=== PATIENT | male | born 1950 | race Caucasian/White ===

== ENCOUNTER → 2020-03-12 12:04 | Outpatient (CLI) | payer MEDICARE, OTHER, SELFPAY ==
[2020-03-12 11:32] VITALS: BMI 21.1
[2020-03-12 16:18] LABS: ALB/GLOB Ratio 1.2 RATIO (0.9-2.4); AST(SGOT) 19 U/L (15-37); Alanine Aminotransfer ALT/SGPT 32 U/L (16-61); Albumin, Serum 3.7 g/dL (3.2-5.0); Alkaline Phosphatase 86 U/L (45-117); Anion Gap 5 (5-15); BUN 15 mg/dL (7-18); BUN/Creat Ratio 15.9 RATIO (10-20); Calcium,Total 9.5 mg/dL (8.5-10.1); Chloride 107 mmol/L (98-107); Cholesterol 161 mg/dL (200); Creatinine, Serum 0.94 mg/dL (0.70-1.30); EST Glomerular Filtration Rate 84 mL/min (>60); Est Glom Filt Rate - Afr Amer 102 mL/min (>60); Globulin 3.1 g/dL (2.2-4.2); Glucose 87 mg/dL (74-106); High Density Lipoprotein 54 mg/dL; PSA,Total- Diagnostic 1.21 ng/mL (0.0-4.0); Potassium 4.5 mmol/L (3.5-5.1); Protein, Total 6.8 g/dL (6.4-8.2); Sodium Level 141 mmol/L (136-145); Triglycerides 182 mg/dL; Very Low Density Lipoprotein 36 mg/dL (5-40)
== END ==
PROVIDERS: PCP Family Medicine; Referring Provider Family Medicine; Visit Provider Family Medicine
DX: Z00.00 Encounter for general adult medical examination without abnormal findings (principal); E78.5 Hyperlipidemia, unspecified; R35.1 Nocturia
CPT/HCPCS: 36415; 80053; 80061; 84153

== ENCOUNTER → 2021-01-06 14:43 | Outpatient (CLI) | payer MEDICARE, OTHER, SELFPAY ==
[2021-01-06 17:04] LABS: ALB/GLOB Ratio 1.3 RATIO (0.9-2.4); AST(SGOT) 21 U/L (15-37); Alanine Aminotransfer ALT/SGPT 50 U/L (16-61); Albumin, Serum 3.8 g/dL (3.2-5.0); Alkaline Phosphatase 75 U/L (45-117); Anion Gap 5 (5-15); BUN 15 mg/dL (7-18); BUN/Creat Ratio 17.2 RATIO (10-20); Calcium,Total 9.5 mg/dL (8.5-10.1); Chloride 106 mmol/L (98-107); Cholesterol 168 mg/dL (200); Creatinine, Serum 0.87 mg/dL (0.70-1.30); EST Glomerular Filtration Rate 91 mL/min (>60); Est Glom Filt Rate - Afr Amer 111 mL/min (>60); Globulin 2.9 g/dL (2.2-4.2); Glucose 120 mg/dL (74-106); High Density Lipoprotein 44 mg/dL; PSA,Total- Diagnostic 1.27 ng/mL (0.0-4.0); Protein, Total 6.7 g/dL (6.4-8.2); Sodium Level 140 mmol/L (136-145); Triglycerides 264 mg/dL; Very Low Density Lipoprotein 53 mg/dL (5-40)
== END ==
PROVIDERS: PCP Family Medicine; Referring Provider Family Medicine; Visit Provider Family Medicine
DX: Z00.00 Encounter for general adult medical examination without abnormal findings (principal); E78.5 Hyperlipidemia, unspecified; R35.1 Nocturia
CPT/HCPCS: 36415; 80053; 80061; 84153

== ENCOUNTER 2021-03-26 10:30 | Outpatient (RCR) | payer MEDICARE, OTHER, SELFPAY ==
[2020-10-30 13:02] VITALS: BMI 21.1
--- NOTE | 2020-11-05 12:57 | HP.PTEVAL_ITS ---
Patient's Visit Information BRAN DAY is a 70 year old M referred to Physical Therapy by Dr. Erickson Kimble DO with a diagnosis of LOW BACK PAIN,LEFT LEG PAIN. Date of Evaluation: 11/05/20 Physical Therapist: Luis Alonzo, PT, Cert MDT, OCS - Visit Plan Frequency: 2x /Week Duration: 4 Weeks Plan: PT INTERVENTIONS DLS,MECKEZIE EX'S,POSTURAL STRENGTHENING LE FLEXABILITY ,AND MODALTIES - Subjective This 70 y/o male presents to physical therapy with LBP and left leg pain. Patient initially just had left LBP but cleared up in SEPTEMBER .Then recently 2 weeks lifting luggage in a Van throwing in back, Thus made symptoms worse. Location pa in left LS buttock hams/calf dorsal foot. Patient has parathesia calf and foot. Seen DR eveline villareal. Patient had severe symptoms in [place] ..prednisone. Symptoms are intermittent. Aggravating bending, lifting and standing . Walking is okay. Alleviating factors resting and sitting. Pain affects sleeping. Coughing/sneezing . Bowel/bladder -. Patient as no prior PT. Patient symptoms affects QOL and function. Patient worse in leg.Patient goals decrease leg pain.Patient did have a x-rays -. SOCIAL: . VOCATION: retired - Pain Left Back Pain Intensity (Out of 10): 2 Pain Intensity Range: 10 Left Lower Extremity Pain Intensity (Out of 10): 4 Pain Intensity Range: 10 - Objective POSTURE: mild forward posture. GAIT: reciprocal pattern. NEURO: c/o parathesia/tingling, left Left foot ,reflexes L3-4,L4-5,L-S1 1/3. SYMMRTIES: mild scoliosis ,pelvis. FLEXABLITY: hams mod tight. MMT: quads/hams 4/5,hip flexion 4-/5,ankle 5/5. LUMBAR FLEXION: mod loss, extension min loss, side glides min loss - Special Tests L/S Slump test left side: Positive L/S Slump test right side: Negative L/S Left Straight Leg Raise: Negative L/S Right Straight Leg Raise: Positive Lumbar Standing: Flexion - Mechanical Response: No effect Lumbar Standing: Flexion - Symptoms After Testing: No worse Lumbar Standing: Extension - Symptoms During Testing: Decreases Lumbar Standing: Extension - Symptoms After Testing: No better Lumbar Standing: Right Side Glides - Mechanical Response: No effect Lumbar Standing: Right Side [place] - Symptoms During Testing: No effect Lumbar Standing: Right Side [place] - Symptoms After Testing: No effect Lumbar Standing: Left Side [place] - Mechanical Response: No effect Lumbar Standing: Left Side [place] - Symptoms During Testing: No effect Lumbar Standing: Left Side [place] - Symptoms After Testing: No effect Lumbar Lying: Flexion - Mechanical Response: No effect Lumbar Lying: Flexion - Symptoms During Testing: Increases Lumbar Lying: Flexion - Symptoms After Testing: No worse Comments:: hams Lumbar Lying: Extension - Mechanical Response: No effect Lumbar Lying: Extension - Symptoms During Testing: Decreases Lumbar Lying: Extension - Symptoms After Testing: Better Comments:: ham - Goals Goal 1:: I with hep Goal Time Frame: 4-6 Weeks Goal 2:: Patient to improve posture and body mechanics to improve function Goal Time Frame: 4-6 Weeks Goal 3:: Patient to improve lumbar ROM for function of recovery Goal Time Frame: 4-6 Weeks Goal 4:: Patient to decrease back and leg pain by 50% or > to improve function Goal Time Frame: 4-6 Weeks Goal 5:: Patient to improve lumbar ROM for function of recovery Goal Time Frame: 4-6 Weeks - Rehabilitation Potential Physical Therapy Diagnosis: This patient has left lumbar radiculopathy with pain in left leg with pain with test movements, positioning , and decrease function of recovery of lumbar thus affects function and ADL'S thus benifit from skilled PT Rehabilitation Potential: Good - Anticipated Interventions Patient/Client Instruction: Educate patient on: Condition, Plan of Care For the Purpose of:: To decrease pain, To increase ROM, To improve muscle performance and motor function, To improve ability to perform ADL's, To increase tolerance to activity/condition/position, To improve ability of physical actions for home/community/work/leisure, To improve health of tissue, To decrease soft tissue restriction, To increase flexibility/ROM, To reduce risk of recurrence, To prevent re-injury, To improve ability to perform tasks related to life management Therapeutic Exercise to Include: Strength training, Endurance training, Body mechanics, Postural training, Flexibilty training, Dynamic Lumbar Stabilization, Deya Exercises For the Purpose of:: To decrease pain, To increase ROM, To improve muscle performance and motor function, To improve ability to perform ADL's, To decrease soft tissue restriction, To increase flexibility/ROM, To reduce risk of recurrence, To improve health and function, To improve self management, To improve tolerance to ADL's TENS: Yes IF ES: Yes Cryotherapy (ice pack, ice massage): Yes Thermo therapy (hot pack): Yes Ultrasound (thermal/non thermal): Yes For the Purpose of:: To decrease pain, To increase ROM, To improve nutrient delivery to tissue, To increase oxygenation perfusion, To improve health of tissue, To decrease soft tissue restriction, To increase flexibility/ROM Thank you for the opportunity to evaluate your patient. For Medicare and Medicare HMO plans, please review the plan of care and approve it. It will need to be FAXED BACK to us at [phone] for Medicare purposes. For Medicare only, by signing this I certify the plan of care. Please let me know if there are questions or concerns regarding this plan of care. Physician Signature: Date:
--- NOTE | 2020-12-10 11:10 | HP.PTREVAL ---
Dr. Erickson Kimble, DO, It has been my pleasure to treat BRAN DAY over the last 8 visits for LOW BACK PAIN,LEFT LEG PAIN. Please see the progress note below for an update on the physical therapy plan of care! Subjective: Doing better .. sleeping better. less pain Objective/Function: POSTURE: mild forward posture. PALPATION: unremarkable. SYMMTRIES: align. FLEXABILTY: hams mod/severe tight. MMT: quads/hams 4/5 ,hip flexion 4-/5,ankle 5/5. LUMBAR ROM: flexion mod/severe loss, side glides min loss, extension in ,loss. + ANR LEFT Plan Plan: cont with POC 2XWEEK FOR 4WEEKS. PT INTERVENTIONS DLS, MECKEZIE EX'S, POSTURAL STRENGTHENING, LE FLEXABILITY, AND MODALTIES Balance/Gait/Functional tests - Balance/Special Test Scores Oswestry Low Back Score: 15 Goals Goal 1:: I with hep Goal Time Frame: 4-6 Weeks Goal Progress: Goal Met Goal 2:: Patient to improve posture and body mechanics to improve function Goal Time Frame: 4-6 Weeks Goal Progress: Progressing Goal 3:: Patient to improve lumbar ROM for function of recovery Goal Time Frame: 4-6 Weeks Goal Progress: Progressing Goal 4:: Patient to decrease back and leg pain by 50% or > to improve function Goal Time Frame: 4-6 Weeks Goal Progress: Progressing Goal 5:: Patient to improve lumbar ROM for function of recovery Goal Time Frame: 4-6 Weeks Goal Progress: Progressing Anticipated Interventions Patient/Client Instruction: Educate patient on: Condition, Plan of Care For the Purpose of:: To decrease pain, To increase ROM, To improve muscle performance and motor function, To improve ability to perform ADL's, To increase tolerance to activity/condition/position, To improve ability of physical actions for home/community/work/leisure, To improve health of tissue, To decrease soft tissue restriction, To increase flexibility/ROM, To reduce risk of recurrence, To prevent re-injury, To improve ability to perform tasks related to life management Therapeutic Exercise to Include: Strength training, Endurance training, Body mechanics, Postural training, Flexibilty training, Dynamic Lumbar Stabilization, Deya Exercises For the Purpose of:: To decrease pain, To increase ROM, To improve muscle performance and motor function, To improve ability to perform ADL's, To decrease soft tissue restriction, To increase flexibility/ROM, To reduce risk of recurrence, To improve health and function, To improve self management, To improve tolerance to ADL's TENS: Yes IF ES: Yes Cryotherapy (ice pack, ice massage): Yes Thermo therapy (hot pack): Yes Ultrasound (thermal/non thermal): Yes For the Purpose of:: To decrease pain, To increase ROM, To improve nutrient delivery to tissue, To increase oxygenation perfusion, To improve health of tissue, To decrease soft tissue restriction, To increase flexibility/ROM Please do not hesitate to contact me at [phone] by phone or if you have questions or concerns regarding this new plan of care! Sincerely, Luis Alonzo, PT, Cert MDT, OCS
--- NOTE | 2021-01-14 12:57 | HP.PTREVAL ---
Dr. Erickson Kimble, DO, It has been my pleasure to treat BRAN DAY over the last 18 visits for LOW BACK PAIN,LEFT LEG PAIN. Please see the progress note below for an update on the physical therapy plan of care! Subjective: Doing better Objective/Function: POSTURE: WFL. GAIT: RECIPROCAL PATTERN. NEURO: OCCASIONAL PARASTHESIA LEFT LEG,REFLEXES 1/3 L3-4,L4-5,L5-S 1. MMT: QUADS/HAMS ,4/5,HIP FLEXION 4-/5,ANKLE DF 4-/5 LEFT. LUMBAR ROM: FLEXION MIN LOSS,EXTENSION MIN LOSS,SIDE GLIDES MIN LOSS. PATIENT WILL BENIFIT CFROM SKILLED WITH NEURO DEFICITS LEFT LEG WITH WEAKNESS AND FLEXION ACTIVITIES Plan Plan: cont with POC 2XWEEK FOR 4WEEKS. PT INTERVENTIONS DLS, MECKEZIE EX'S, POSTURAL STRENGTHENING, LE FLEXABILITY, AND MODALTIES Balance/Gait/Functional tests - Balance/Special Test Scores Oswestry Low Back Score: 11 Goals Goal 1:: I with hep to self management bacjk Goal Time Frame: 4-6 Weeks Goal Progress: Goal Met Goal 2:: Patient to improve posture and body mechanics to improve function Goal Time Frame: 4-6 Weeks Goal Progress: Progressing Goal 3:: Patient to improve lumbar ROM for function of recovery Goal Time Frame: 4-6 Weeks Goal Progress: Progressing Goal 4:: Patient to decrease back and leg pain by 50% or > to improve function Goal Time Frame: 4-6 Weeks Goal Progress: Progressing Goal 5:: Patient to improve lumbar ROM for function of recovery Goal Time Frame: 4-6 Weeks Goal Progress: Progressing Anticipated Interventions Patient/Client Instruction: Educate patient on: Condition, Plan of Care For the Purpose of:: To decrease pain, To increase ROM, To improve muscle performance and motor function, To improve ability to perform ADL's, To increase tolerance to activity/condition/position, To improve ability of physical actions for home/community/work/leisure, To improve health of tissue, To decrease soft tissue restriction, To increase flexibility/ROM, To reduce risk of recurrence, To prevent re-injury, To improve ability to perform tasks related to life management Therapeutic Exercise to Include: Strength training, Endurance training, Body mechanics, Postural training, Flexibilty training, Dynamic Lumbar Stabilization, Deya Exercises For the Purpose of:: To decrease pain, To increase ROM, To improve muscle performance and motor function, To improve ability to perform ADL's, To decrease soft tissue restriction, To increase flexibility/ROM, To reduce risk of recurrence, To improve health and function, To improve self management, To improve tolerance to ADL's TENS: Yes IF ES: Yes Cryotherapy (ice pack, ice massage): Yes Thermo therapy (hot pack): Yes Ultrasound (thermal/non thermal): Yes For the Purpose of:: To decrease pain, To increase ROM, To improve nutrient delivery to tissue, To increase oxygenation perfusion, To improve health of tissue, To decrease soft tissue restriction, To increase flexibility/ROM Please do not hesitate to contact me at [phone] by phone or if you have questions or concerns regarding this new plan of care! Sincerely, Luis Alonzo, PT, Cert MDT, OCS
--- NOTE | 2021-03-26 11:17 | HP.PTDCSUM ---
It has been my pleasure to treat BRAN DAY referred by Dr. Erickson Kimble DO, with the diagnosis of LOW BACK PAIN,LEFT LEG PAIN for a total of 29 visit(s). Discharge Date: 03/26/21 Please see the following information for a summary of their discharge status. Subjective: Doing well.. Left Back Pain Intensity (Out of 10): 0 Left Lower Extremity Pain Intensity (Out of 10): 0 % Improvement: 90 Objective/Function: POSTURE: WFL. GAIT: RECIROCAL PATTERN. MMT: 4/5 HIP/KNEES/ANKLE. LUMBAR ROM: MIN LOSS FLEXION/EXTENSION. FLEXABILITY: MIN TIGHT Goal 1:: I with hep to self management bacjk Goal Progress: Goal Met Goal 2:: Patient to improve posture and body mechanics to improve function Goal Progress: Goal Met Goal 3:: Patient to improve lumbar ROM for function of recovery Goal Progress: Goal Met Goal 4:: Patient to decrease back and leg pain by 50% or > to improve function Goal Progress: Goal Met Goal 5:: Patient to improve lumbar ROM for function of recovery Goal Progress: Goal Met Plan: D/C Discharge Comments: HEP If there are questions or concerns regarding this patient's physical therapy, please feel free to call me at [phone]. Thank you for the referral of this patient. Sincerely, Luis Alonzo PT, Cert MDT, OCS Balance/Gait/Functional tests - Balance/Special Test Scores Oswestry Low Back Score: 1
== END 2021-03-26 19:00 | disposition home or self-care (01) ==
LOC: PT 10:30
PROVIDERS: PCP Family Medicine; Referring Provider Family Medicine; Visit Provider Family Medicine
DX: M54.5 Low back pain (principal); M79.605 Pain in left leg
CPT/HCPCS: 97110; 97162

== ENCOUNTER → 2021-04-28 12:18 | Outpatient (CLI) | payer MEDICARE, OTHER, SELFPAY ==
--- NOTE | 2021-04-28 14:26 | NEURO ---
NCS and/or EMG Patient Report Ordering Doctor: Erickson Kimble DATE OF SERVICE: 04/28/21 Yahir presents for electrodiagnostic testing of the left lower limb. Reports intermittent low back and left lower extremity pain. Electrodiagnostic findings: Left peroneal motor nerve demonstrates normal distal latency, amplitude and conduction velocity. Normal left tibial motor response. Prolonged left peroneal F-wave. Prolonged H reflex bilaterally. Mildly prolonged left sural latency. Normal left superficial peroneal and medial plantar response. On needle EMG, all muscles tested in the left lower limb showed no evidence of denervation with normal motor unit action potentials. Electrodiagnostic impression: This is an abnormal study in the left lower limb 1. 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 2. There is no electrodiagnostic evidence for lumbosacral radiculopathy.
== END ==
PROVIDERS: PCP Family Medicine; Referring Provider Family Medicine; Visit Provider Family Medicine
DX: M54.16 Radiculopathy, lumbar region (principal)
CPT/HCPCS: 95886; 95910

== ENCOUNTER → 2022-03-08 | Outpatient (CLI) | payer MEDICARE, OTHER, SELFPAY ==
[2022-03-08 12:31] LABS: Absolute Lymphocyte Count 1.54 X10^3/uL (0.83-4.51); Basophil# 0.07 X10^3/uL; Basophil% 1.3 % (0-1); Eosinophil# 0.36 X10^3/uL; Eosinophils% 6.7 % (0-5); Hematocrit 43.4 % (40-54); Hemoglobin 14.6 g/dL (13.0-16.5); Lymphocyte # 1.54 X10^3/ul (0.83-4.51); Lymphocyte % 28.8 % (19-41); Mean Corp Hgb Conc 33.6 g/dL (32-36); Mean Corpuscular Volume 89.1 fL (80-94); Mean Platelet Vol. 9.8 fl (6.2-12.0); Monocyte# 0.41 X10^3/uL; Monocyte% 7.7 % (0-10); NRBC Flagged by Analyzer 0 % (0-5); Neutrophil # 2.95 X10^3/uL (2.7-7.7); Neutrophil % 55.1 % (47-70); Platelet Count 216 K/mm3 (150-450); RBC Distribution Width CV 12.3 % (11.6-14.6); RBC Distribution Width SD 40.2 fl (35.1-43.9); Red Blood Count 4.87 M/mm3 (4.6-6.2); White Blood Count 5.4 K/mm3 (4.4-11.0)
[2022-03-08 12:33] LABS: ALB/GLOB Ratio 1.2 RATIO (0.9-2.4); AST(SGOT) 16 U/L (15-37); Alanine Aminotransfer ALT/SGPT 29 U/L (16-61); Albumin, Serum 3.7 g/dL (3.2-5.0); Alkaline Phosphatase 71 U/L (45-117); Anion Gap 3 (5-15); BUN 19 mg/dL (7-18); BUN/Creat Ratio 18.8 RATIO (10-20); Calcium,Total 9.8 mg/dL (8.5-10.1); Chloride 107 mmol/L (98-107); Cholesterol 153 mg/dL (200); Creatinine, Serum 1.01 mg/dL (0.70-1.30); EST Glomerular Filtration Rate 77 mL/min (>60); Est Glom Filt Rate - Afr Amer 93 mL/min (>60); Glucose 99 mg/dL (74-106); High Density Lipoprotein 52 mg/dL; Potassium 4.3 mmol/L (3.5-5.1); Protein, Total 6.7 g/dL (6.4-8.2); Sodium Level 140 mmol/L (136-145); Triglycerides 147 mg/dL; Very Low Density Lipoprotein 29 mg/dL (5-40)
== END | disposition home or self-care (01) ==
LOC: BIMLAB 10:41
PROVIDERS: PCP Family Medicine; Visit Provider Family Medicine
DX: E78.5 Hyperlipidemia, unspecified (principal); M54.50 Low back pain, unspecified; M79.605 Pain in left leg
CPT/HCPCS: 36415; 80053; 80061; 85025

== ENCOUNTER → 2022-08-31 | Outpatient (CLI) | payer MEDICARE, OTHER, SELFPAY ==
[2022-09-02 05:07] LABS: Immunoglobulin A 83 mg/dL (61-437); Immunoglobulin G 673 mg/dL (603-1613); Immunoglobulin M 30 mg/dL (15-143)
== END | disposition home or self-care (01) ==
LOC: BIMLAB 12:06
PROVIDERS: PCP Family Medicine; Visit Provider Family Medicine
DX: U09.9 Post COVID-19 condition, unspecified (principal)
CPT/HCPCS: 36415; 82784

== ENCOUNTER → 2022-11-02 | Outpatient (CLI) | payer MEDICARE, OTHER, SELFPAY ==
[2022-11-02 15:44] LABS: Absolute Lymphocyte Count 1.38 X10^3/uL (0.83-4.51); Absolute Neutrophil Count 3.6 X10^3/uL (2.0-7.7); Basophil# 0.06 X10^3/uL; Eosinophil# 0.32 X10^3/uL; Eosinophils% 5.6 % (0-5); Hematocrit 44.2 % (40-54); Hemoglobin 14.1 g/dL (13.0-16.5); Lymphocyte # 1.38 X10^3/ul (0.83-4.51); Mean Corp Hgb Conc 31.9 g/dL (32-36); Mean Corpuscular Volume 90.8 fL (80-94); Mean Platelet Vol. 9.9 fl (6.2-12.0); Monocyte% 6.9 % (0-10); NRBC Flagged by Analyzer 0 % (0-5); Neutrophil # 3.58 X10^3/uL (2.7-7.7); Neutrophil % 62.2 % (47-70); Platelet Count 214 K/mm3 (150-450); RBC Distribution Width CV 12.4 % (11.6-14.6); RBC Distribution Width SD 40.9 fl (35.1-43.9); Red Blood Count 4.87 M/mm3 (4.6-6.2); White Blood Count 5.8 K/mm3 (4.4-11.0)
[2022-11-02 16:17] LABS: Erythrocyte Sedimentation Rate 3 mm/hr (0-20)
[2022-11-02 17:06] LABS: ALB/GLOB Ratio 1.2 RATIO (0.9-2.4); AST(SGOT) 19 U/L (15-37); Alanine Aminotransfer ALT/SGPT 25 U/L (16-61); Albumin, Serum 3.6 g/dL (3.2-5.0); Alkaline Phosphatase 73 U/L (45-117); Anion Gap 4 (5-15); BUN 15 mg/dL (7-18); BUN/Creat Ratio 14.7 RATIO (10-20); CRP < 2.90 mg/L (0.0-3.0); Calcium,Total 9.7 mg/dL (8.5-10.1); Chloride 108 mmol/L (98-107); Cholesterol 153 mg/dL (200); Creatinine, Serum 1.02 mg/dL (0.70-1.30); EST Glomerular Filtration Rate 76 mL/min (>60); Est Glom Filt Rate - Afr Amer 92 mL/min (>60); Globulin 2.9 g/dL (2.2-4.2); Glucose 123 mg/dL (74-106); Potassium 3.8 mmol/L (3.5-5.1); Protein, Total 6.5 g/dL (6.4-8.2); Sodium Level 140 mmol/L (136-145)
[2022-11-04 13:08] LABS: ANTINUCLEAR ANTIBODIES DIRECT Negative (Negative)
== END | disposition home or self-care (01) ==
LOC: BIMLAB 14:16
PROVIDERS: PCP Family Medicine; Referring Provider Ophthalmology Retina Specialist; Visit Provider Ophthalmology Retina Specialist
DX: H35.82 Retinal ischemia (principal); H35.89 Other specified retinal disorders
CPT/HCPCS: 36415; 80053; 82465; 85025; 85652; 86038; 86140

== ENCOUNTER → 2023-02-24 | Outpatient (CLI) | payer MEDICARE, OTHER, SELFPAY ==
[2023-02-24 13:15] LABS: ALB/GLOB Ratio 1.2 RATIO (0.9-2.4); AST(SGOT) 20 U/L (15-37); Alanine Aminotransfer ALT/SGPT 30 U/L (16-61); Albumin, Serum 3.6 g/dL (3.2-5.0); Alkaline Phosphatase 67 U/L (45-117); Anion Gap 6 (5-15); BUN 18 mg/dL (7-18); BUN/Creat Ratio 18.4 RATIO (10-20); Calcium,Total 9.8 mg/dL (8.5-10.1); Chloride 109 mmol/L (98-107); Cholesterol 156 mg/dL (200); Creatinine, Serum 0.98 mg/dL (0.70-1.30); EST Glomerular Filtration Rate 80 mL/min (>60); Est Glom Filt Rate - Afr Amer 97 mL/min (>60); Glucose 99 mg/dL (74-106); High Density Lipoprotein 54 mg/dL; PSA,Total - Annual Screen 1.47 ng/mL (0.00-4.00); Potassium 4.2 mmol/L (3.5-5.1); Protein, Total 6.6 g/dL (6.4-8.2); Sodium Level 141 mmol/L (136-145); Triglycerides 96 mg/dL; Very Low Density Lipoprotein 19 mg/dL (5-40)
== END | disposition home or self-care (01) ==
LOC: BIMLAB 10:37
PROVIDERS: PCP Family Medicine; Referring Provider Family Medicine; Visit Provider Family Medicine
DX: Z00.00 Encounter for general adult medical examination without abnormal findings (principal); E78.5 Hyperlipidemia, unspecified; R35.0 Frequency of micturition
CPT/HCPCS: 36415; 80053; 80061; 84153; G0103

== ENCOUNTER 2023-08-15 09:30 | Outpatient (RCR) | payer MEDICARE, OTHER, SELFPAY ==
--- NOTE | 2023-03-28 11:10 | HP.PTEVAL ---
Patient's Visit Information Visit Information Visit Information: BRAN DAY is a 72 year old M referred to Physical Therapy by Dr. Erickson Kimble, DO with a diagnosis of LOW BACK PAIN ,PAIN IN LEG ,SACROOCCYGEAL DISORDER. Date of Evaluation: 03/28/23 Physical Therapist: Luis Alonzo, PT, Cert MDT, OCS Visit Plan Frequency: 2x /Week Duration: 4 Weeks Plan: PT INTERVTIONS MCKEZIE EX'S ,DLS ,POSTURAL EX'S ,HIP STRENGTHNEING ,LE FLEXABLITY AND MODALTIES PRN Subjective Subjective: This 72 y/o male presents to physical therapy lumbar pain with radicular symptoms in leg. Patient has LBP and leg pain ~ 2 1/2 years. Most recently in August bent over developed severe LBP and actually fell and recent felt pain in hamstrings . Symptoms are intermittent in hamstrings. Seen DR recommended PT. Aggravating factors bending ,lifting elevating from chair rotational movements extending standing affects back and walking affects hamstrings. Alleviating factors resting. Denies paresthesia/tingling. Bowel/bladder-. Coughing/sneezing-. Patient sleeping okay at night. Patient pain affects QOL and function. Patient goals to decrease pain. SOCAIL: VOCATION: retired Pain Bilateral Back: Pain Intensity (Out of 10): 2 Pain Intensity Range: 10 Bilateral Lower Extremity: Pain Intensity (Out of 10): 6 Pain Intensity Range: 10 Comment: hamstrings Objective Objective: POSTURE: rounded shoulders head forward GAIT: reciprocal pattern STMMTRICAL : align FLAXABLITY: hamstrings mod tight MMT: Quads/hams 4/5 ,hip flexion 4/5 ,hip abduction ( peak force) 22.1 left ,23.7 right LUMBAR ROM: flexion mod loss, extension min loss ,side glides min loss Special Tests L/S Slump test left side: Negative L/S Slump test right side: Negative L/S Left Straight Leg Raise: Negative L/S Right Straight Leg Raise: Negative Lumbar Standing: Flexion - Mechanical Response: No effect Lumbar Standing: Flexion - Symptoms During Testing: Increases Lumbar Standing: Flexion - Symptoms After Testing: No worse Lumbar Standing: Extension - Mechanical Response: No effect Lumbar Standing: Extension - Symptoms During Testing: No effect Lumbar Standing: Extension - Symptoms After Testing: No effect Lumbar Standing: Right Side Glides - Mechanical Response: No effect Lumbar Standing: Right Side [place] - Symptoms During Testing: No effect Lumbar Standing: Right Side [place] - Symptoms After Testing: No effect Lumbar Standing: Left Side [place] - Mechanical Response: No effect Lumbar Standing: Left Side [place] - Symptoms During Testing: No effect Lumbar Lying: Flexion - Mechanical Response: No effect Lumbar Lying: Flexion - Symptoms During Testing: Increases Lumbar Lying: Flexion - Symptoms After Testing: No worse Lumbar Lying: Extension - Mechanical Response: No effect Lumbar Lying: Extension - Symptoms During Testing: Increases Lumbar Lying: Extension - Symptoms After Testing: Better Comments:: ER stretch Balance/Special Test Scores Oswestry Low Back Score: 21 Goals Goal 1:: Patient to be I with HEP for back Goal Time Frame: 4-6 Weeks Goal 2:: Patient to improve lumbar ROM for function of recovery to tied shoes Goal Time Frame: 4-6 Weeks Goal 3:: Patient to demonstrate 50% improvement with decrease pain and improve function Goal Time Frame: 4-6 Weeks Goal 4:: Patient to improve back oswestry score by 5 points to improve QOL and function Goal Time Frame: 4-6 Weeks Goal 5:: Patient to improve peak force hip abductors by 10# strength to improve gait with decrease pain Goal Time Frame: 4-6 Weeks Rehabilitation Potential Physical Therapy Diagnosis: This patient has low back pain with radicular symptoms along with hip Medius weakness with pain with motion testing and bending/lifting thus will benefit from skilled PT to decrease pain Rehabilitation Potential: Good Anticipated Interventions Patient/Client Instruction: Educate patient on: Condition and Plan of Care For the Purpose of:: To decrease pain, To increase ROM, To improve muscle performance and motor function, To improve ability to perform ADL's, To increase tolerance to activity/condition/position, To improve ability of physical actions for home/community/work/leisure, To improve health of tissue, To decrease soft tissue restriction and To increase flexibility/ROM Therapeutic Exercise to Include: Strength training, Power training, Body mechanics, Postural training, Flexibilty training, Dynamic Lumbar Stabilization and Deya Exercises For the Purpose of:: To decrease pain, To increase ROM, To improve muscle performance and motor function, To increase tolerance to activity/condition/position, To improve performance and independence with ADL's, To improve ability of physical actions for home/community/work/leisure, To improve health of tissue, To decrease soft tissue restriction, To increase flexibility/ROM, To improve health and function and To prevent re-injury TENS: Yes IF ES: Yes Cryotherapy (ice pack, ice massage): Yes Thermo therapy (hot pack): Yes Ultrasound (thermal/non thermal): Yes For the Purpose of:: To decrease pain, To increase ROM, To improve nutrient delivery to tissue, To increase oxygenation perfusion, To improve health of tissue and To decrease soft tissue restriction Text: Thank you for the opportunity to evaluate your patient. For Medicare and Medicare HMO plans, please review the plan of care and approve it. It will need to be FAXED BACK to us at [phone] for Medicare purposes. For Medicare only, by signing this I certify the plan of care. Please let me know if there are questions or concerns regarding this plan of care. Physician Signature: Date:
--- NOTE | 2023-04-27 09:33 | HP.PTREVAL_ITS ---
Re-Evaluation Intro: Dr. Erickson Kimble, DO, It has been my pleasure to treat BRAN DAY over the last 9 visits for LOW BACK PAIN ,PAIN IN LEG ,SACROOCCYGEAL DISORDER. Please see the progress note below for an update on the physical therapy plan of care! Subjective Subjective: Doing well Objective Objective/Function: POSTURE: rounded shoulders head forward GAIT: reciprocal pattern STMMTRICAL : align FLAXABLITY: hamstrings mod tight MMT: Quads/hams 4/5 ,hip flexion right 22.5 , ,left 20.2 ,hip abduction ( peak force) 21.1 left ,22.7 right LUMBAR ROM: flexion mod loss, extension min loss ,side glides min loss Plan Plan Plan: PT INTERVTIONS RENETTA EX'S ,DLS ,POSTURAL EX'S ,HIP STRENGTHNEING ,LE FLEXABLITY AND MODALTIES PRN Balance/Gait/Functional tests Balance/Special Test Scores Oswestry Low Back Score: 21 Goals Goals Goal 1:: Patient to be I with HEP for back Goal Time Frame: 4-6 Weeks Goal Progress: Progressing Goal 2:: Patient to improve lumbar ROM for function of recovery to tied shoes Goal Time Frame: 4-6 Weeks Goal 3:: Patient to demonstrate 50% improvement with decrease pain and improve function Goal Time Frame: 4-6 Weeks Goal Progress: Progressing Goal 4:: Patient to improve back oswestry score by 5 points to improve QOL and function Goal Time Frame: 4-6 Weeks Goal Progress: Progressing Goal 5:: Patient to improve peak force hip abductors by 10# strength to improve gait with decrease pain Goal Time Frame: 4-6 Weeks Goal Progress: Progressing Anticipated Interventions Anticipated Interventions Patient/Client Instruction: Educate patient on: Condition and Plan of Care For the Purpose of:: To decrease pain, To increase ROM, To improve muscle performance and motor function, To improve ability to perform ADL's, To increase tolerance to activity/condition/position, To improve ability of physical actions for home/community/work/leisure, To improve health of tissue, To decrease soft tissue restriction and To increase flexibility/ROM Therapeutic Exercise to Include: Strength training, Power training, Body mechanics, Postural training, Flexibilty training, Dynamic Lumbar Stabilization and [place] Exercises For the Purpose of:: To decrease pain, To increase ROM, To improve muscle performance and motor function, To increase tolerance to activity/condition/position, To improve performance and independence with ADL's, To improve ability of physical actions for home/community/work/leisure, To improve health of tissue, To decrease soft tissue restriction, To increase flexi bility/ROM, To improve health and function and To prevent re-injury TENS: Yes IF ES: Yes Cryotherapy (ice pack, ice massage): Yes Thermo therapy (hot pack): Yes Ultrasound (thermal/non thermal): Yes For the Purpose of:: To decrease pain, To increase ROM, To improve nutrient delivery to tissue, To increase oxygenation perfusion, To improve health of tissue and To decrease soft tissue restriction Re-Evaluation Ending Re-evaluation ending: Please do not hesitate to contact me at [phone] by phone or if you have questions or concerns regarding this new plan of care! Sincerely, Luis Alonzo, PT, Cert MDT, OCS
--- NOTE | 2023-07-10 10:21 | HP.PTREVAL_ITS ---
Re-Evaluation Intro: Dr. Erickson Kimble, DO, It has been my pleasure to treat BRAN DAY over the last 21 visits for LOW BACK PAIN ,PAIN IN LEG ,SACROOCCYGEAL DISORDER. Please see the progress note below for an update on the physical therapy plan of care! 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 Objective Objective/Function: GAIT: reciprocal pattern STMMTRICAL : align FLAXABLITY: hamstrings mod tight MMT: Quads/hams 4/5 ,hip flexion right 66.5 , ,left 57.2 ,hip abduction ( peak force) 30.1 left 28.7 right LUMBAR ROM: flexion mod loss, extension min loss ,side glides min loss Plan Plan Plan: PT INTERVTIONS RENETTA EX'S ,DLS ,POSTURAL EX'S ,HIP STRENGTHNEING ,LE FLEXABLITY AND MODALTIES PRN Balance/Gait/Functional tests Balance/Special Test Scores Oswestry Low Back Score: 16 Goals Goals Goal 1:: Patient to be I with HEP for back Goal Time Frame: 4-6 Weeks Goal Progress: Progressing Goal 2:: Patient to improve lumbar ROM for function of recovery to tied shoes Goal Time Frame: 4-6 Weeks Goal 3:: Patient to demonstrate 60% improvement with decrease pain and improve function( New goal) Goal Time Frame: 4-6 Weeks Goal Progress: Progressing Goal 4:: Patient to improve back oswestry score by 5 points to improve QOL and function Goal Time Frame: 4-6 Weeks Goal Progress: Progressing Goal 5:: Patient to improve peak force hip abductors by 5-10# strength to improve gait with decrease pain( NEW GOAL FOR HIP ABD) * HIP FLEXION GOAL MET* Goal Time Frame: 4-6 Weeks Goal Progress: Progressing Anticipated Interventions Anticipated Interventions Patient/Client Instruction: Educate patient on: Condition and Plan of Care For the Purpose of:: To decrease pain, To increase ROM, To improve muscle pe rformance and motor function, To improve ability to perform ADL's, To increase tolerance to activity/condition/position, To improve ability of physical actions for home/community/work/leisure, To improve health of tissue, To decrease soft tissue restriction and To increase flexibility/ROM Therapeutic Exercise to Include: Strength training, Power training, Body mechanics, Postural training, Flexibilty training, Dynamic Lumbar Stabilization and Renetta Exercises For the Purpose of:: To decrease pain, To increase ROM, To improve muscle performance and motor function, To increase tolerance to activity/condition/position, To improve performance and independence with ADL's, To improve ability of physical actions for home/community/work/leisure, To improve health of tissue, To decrease soft tissue restriction, To increase flexibility/ROM, To improve health and function and To prevent re-injury TENS: Yes IF ES: Yes Cryotherapy (ice pack, ice massage): Yes Thermo therapy (hot pack): Yes Ultrasound (thermal/non thermal): Yes For the Purpose of:: To decrease pain, To increase ROM, To improve nutrient delivery to tissue, To increase oxygenation perfusion, To improve health of tissue and To decrease soft tissue restriction Re-Evaluation Ending Re-evaluation ending: Please do not hesitate to contact me at [phone] by phone or Fax: if you have questions or concerns regarding this new plan of care! Sincerely, Luis Alonzo, PT, Cert MDT, OCS
--- NOTE | 2023-08-15 09:58 | HP.PTDCSUM ---
Discharge Summary D/C summary: It has been my pleasure to treat BRAN DAY referred by Dr. Erickson Kimble DO, with the diagnosis of LOW BACK PAIN ,PAIN IN LEG ,SACROOCCYGEAL DISORDER for a total of 23 visit(s). Discharge Date: 08/15/23 Please see the following information for a summary of their discharge status. Subjective Subjective: Doing okay back doing better Pain Bilateral Back: Pain Intensity (Out of 10): 0 Bilateral Lower Extremity: Pain Intensity (Out of 10): 0 Right Knee: Pain Intensity (Out of 10): 0 Overall Improvement % Improvement: 50 Objective Objective/Function: GAIT: reciprocal pattern STMMTRICAL : align FLAXABLITY: hamstrings mod tight MMT: Quads/hams 4/5 ,hip flexion right 66.5 , ,left 57.2 ,hip abduction ( peak force) 30.1 left 28.7 right LUMBAR ROM: flexion mod loss, extension min loss ,side glides min loss Goals Goal 1:: Patient to be I with HEP for back Goal Progress: Goal Met Goal 2:: Patient to improve lumbar ROM for function of recovery to tied shoes Goal Progress: Goal Met Goal 3:: Patient to demonstrate 60% improvement with decrease pain and improve function( New goal) Goal Progress: Goal Met Goal 4:: Patient to improve back oswestry score by 5 points to improve QOL and function Goal Progress: Goal Met Goal 5:: Patient to improve peak force hip abductors by 5-10# strength to improve gait with decrease pain( NEW GOAL FOR HIP ABD) * HIP FLEXION GOAL MET* Goal Progress: Goal Met Plan Plan: d/c to HEP and Gym program D/C Information d/c sentence: If there are questions or concerns regarding this patient's physical therapy, please feel free to call me at [phone]. Thank you for the referral of this patient. Sincerely, Luis Alonzo, PT, Cert MDT, OCS Balance/Gait/Functional tests Balance/Special Test Scores Oswestry Low Back Score: 7 Improvement % Improvement: 50
== END 2023-08-15 19:00 | disposition home or self-care (01) ==
LOC: PT 09:30
PROVIDERS: PCP Family Medicine; Referring Provider Family Medicine; Visit Provider Family Medicine
DX: M53.3 Sacrococcygeal disorders, not elsewhere classified (principal); G57.82 Other specified mononeuropathies of left lower limb; M54.50 Low back pain, unspecified; M79.605 Pain in left leg; M62.9 Disorder of muscle, unspecified
CPT/HCPCS: 97110; 97162; 97530

== ENCOUNTER → 2024-03-12 | Outpatient (CLI) | payer MEDICARE, OTHER, SELFPAY ==
[2024-03-12 12:19] LABS: ALB/GLOB Ratio 1.2 RATIO (0.9-2.4); AST(SGOT) 16 U/L (15-37); Alanine Aminotransfer ALT/SGPT 28 U/L (16-61); Albumin, Serum 3.6 g/dL (3.2-5.0); Alkaline Phosphatase 86 U/L (45-117); Anion Gap 6 (5-15); BUN 19 mg/dL (7-18); BUN/Creat Ratio 21.1 RATIO (10-20); Calcium,Total 9.6 mg/dL (8.5-10.1); Chloride 106 mmol/L (98-107); Cholesterol 150 mg/dL (200); EST Glomerular Filtration Rate 87 mL/min (>60); Est Glom Filt Rate - Afr Amer 106 mL/min (>60); Glucose 87 mg/dL (74-106); High Density Lipoprotein 49 mg/dL; PSA,Total- Diagnostic 1.88 ng/mL (0.0-4.0); Potassium 4.3 mmol/L (3.5-5.1); Protein, Total 6.6 g/dL (6.4-8.2); Sodium Level 139 mmol/L (136-145); Triglycerides 138 mg/dL; Very Low Density Lipoprotein 28 mg/dL (5-40)
== END | disposition home or self-care (01) ==
LOC: BIMLAB 10:38
PROVIDERS: PCP Family Medicine; Referring Provider Family Medicine; Visit Provider Family Medicine
DX: Z00.00 Encounter for general adult medical examination without abnormal findings (principal); E78.5 Hyperlipidemia, unspecified; R35.1 Nocturia
CPT/HCPCS: 36415; 80053; 80061; 84153

== ENCOUNTER 2024-12-16 11:30 | Outpatient (RCR) | payer MEDICARE, OTHER, SELFPAY ==
--- NOTE | 2024-10-18 15:15 | HP.PTEVAL_ITS ---
Patient's Visit Information Visit Information Visit Information: BRAN DAY is a 74 year old M referred to Physical Therapy by Dr. Erickson Kimble DO with a diagnosis of CERVICALGIA. Date of Evaluation: 10/18/24 Physical Therapist: Luis Alonzo, PT, Cert MDT, OCS Visit Plan Frequency: 2x /Week Duration: 4 Weeks Plan: PT INTERVENTIONS POSTURAL EX'S ,CERVICAL ROM ,FLEXABILITY , AND ICTX 15#- 22# X15 Subjective Subjective: This 74 y/o male presents to physical therapy with cervical pain. Patient has seen several months with progressively worse. Seen DR x-rays showed C4-5 severe disc space narrowing with degenerative endplate/uncovertebral changes, dosv-ap-[id number] right and mild appearing left osseous foraminal narrowing C5-6 [id number] disc space narrowing with degenerative endplate/uncovertebral changes, glra-fs-[id number] right and mlmf-ka-[id number] left appearing osseous foraminal narrowing C6-7 severe disc space narrowing with degenerative endplate/uncovertebral changes. No medication. Location of symptoms cervical region. Symptoms described as tightness. Aggravating worse sitting ,AM ,driving with driving. Alleviating factors rest ,heat. Denies SANCHEZ/tinnitus/nausea. Denies paranesthesia/tingling and no arm weakness or radiculopathy. Patient sleeping okay. Patient has no trauma. Patient has no abnormal night pain.Patient condition affects QOL/function/housework tasks. Patient goals to decrease pain. SOCAIL : marrried VOCATION: Pain Bilateral Neck: Pain Intensity (Out of 10): 2 Pain Intensity Range: 10 Objective Objective: POSTURE: mild forward posture PALAPTION: unremarkable NEURO: denies paresthesia/tingling ,reflexes C5-6-7 2/3 AROM: BUE WFL MMT: grossly 4/5 CERVICAL ROM: flexion min loss ,rotation min loss ,lateral flexion min ,rotation min loss ,retraction WFL Special Tests C/S Radiculapathy - Left Upper limb tension test: Negative C/S Radiculapathy - Right Upper limb tension test: Negative C/S Radiculapathy - Left Spurlings: Negative C/S Radiculapathy - Right Spurlings: Negative C/S Radiculapathy - Left Cervical distraction: Negative C/S Radiculapathy - Right Cervical distraction: Negative C/S Radiculapathy - Left Relief test: Negative C/S Radiculapathy - Right Relief test: Negative Sharp Lacho: Negative Vertebral Artery Test: Negative Alar Ligament Test: Negative Balance/Special Test Scores Oswestry Neck Score: 9 Goals Goal 1:: Patient to be I with HEP for neck Goal Time Frame: 4-6 Weeks Goal 2:: Patient to improve cervical ROM for function of recovery for driving Goal Time Frame: 4-6 Weeks Goal 3:: Patient to improve neck oswestry score by 5 points to improve QOL Goal Time Frame: 4-6 Weeks Goal 4:: Patient to demonstrate 50% improve function and with less pain and for ADL Goal Time Frame: 4-6 Weeks Rehabilitation Potential Physical Therapy Diagnosis: This patient has neck pain with DDD with decrease ROM and stiffness and pain impairs ADLS and housework task thus benefit from skilled PT Rehabilitation Potential: Good Anticipated Interventions Patient/Client Instruction: Educate patient on: Condition and Plan of Care For the Purpose of:: To decrease pain, To increase ROM, To improve muscle performance and motor function, To improve ability to perform ADL's, To increase tolerance to activity/condition/position, To improve ability of physical actions for home/community/work/leisure, To improve health of tissue, To decrease soft tissue restriction, To increase flexibility/ROM and To improve tolerance to ADL's Therapeutic Exercise to Include: Strength training, Postural training, Flexibilty training and Active ROM For the Purpose of:: To decrease pain, To increase ROM, To improve muscle performance and motor function, To increase tolerance to activity/condition/position, To improve ability of physical actions for home/community/work/leisure, To improve health of tissue, To decrease soft tissue restriction and To increase flexibility/ROM Manual Therapy Techniques to Include: Mobilization Comment: CERVICAL TRACTION For the Purpose of:: To decrease pain and To increase ROM TENS: Yes IF ES: Yes Cryotherapy (ice pack, ice massage): Yes Thermo therapy (hot pack): Yes Ultrasound (thermal/non thermal): Yes Intermittent cervical traction: Yes For the Purpose of:: To decrease pain and To increase ROM Text: Thank you for the opportunity to evaluate your patient. For Medicare and Medicare HMO plans, please review the plan of care and approve it. It will need to be FAXED BACK to us at [phone] for Medicare purposes. For Medicare only, by signing this I certify the plan of care. Please let me know if there are questions or concerns regarding this plan of care. Physician Signature: Date:
--- NOTE | 2024-11-15 08:51 | HP.PTREVAL ---
Re-Evaluation Intro: Dr. Erickson Kimble, DO, It has been my pleasure to treat BRAN DAY over the last 9 visits for CERVICALGIA. Please see the progress note below for an update on the physical therapy plan of care! Subjective Subjective: Pain is intermittent Although today is a good day Patient has better idea to manage and decrease ,meaning able to manage pain Seen DR Objective Objective/Function: POSTURE: mild forward posture PALAPTION: unremarkable NEURO: denies paresthesia/tingling ,reflexes C5-6-7 2/3 AROM: BUE WFL MMT: grossly 4/5 CERVICAL ROM: flexion min loss ,rotation min loss ,lateral flexion min ,rotation min loss ,retraction MIN ,EXTENSION C/S Radiculapathy - Left Upper limb tension test: Negative C/S Radiculapathy - Right Upper limb tension test: Negative C/S Radiculapathy - Left Spurlings: Negative C/S Radiculapathy - Right Spurlings: Negative C/S Radiculapathy - Left Cervical distraction: Negative C/S Radiculapathy - Right Cervical distraction: Negative C/S Radiculapathy - Left Relief test: Negative C/S Radiculapathy - Right Relief test: Negative Sharp Lacho: Negative Vertebral Artery Test: Negative Plan Plan Plan: PT INTERVENTIONS POSTURAL EX'S ,CERVICAL ROM ,FLEXABILITY , MANUAL THERAPY /STM/ MOBILIZATION/TRACTION AND CERVICAL Balance/Gait/Functional tests Balance/Special Test Scores Oswestry Neck Score: 8 Goals Goals Goal 1:: Patient to be I with HEP for neck Goal Time Frame: 4-6 Weeks Goal Progress: Progressing Goal 2:: Patient to improve cervical ROM for function of recovery for driving Goal Time Frame: 4-6 Weeks Goal Progress: Progressing Goal 3:: Patient to improve neck oswestry score by 5 points to improve QOL Goal Time Frame: 4-6 Weeks Goal Progress: Progressing Goal 4:: Patient to demonstrate 50% improve function and with less pain and for ADL Goal Time Frame: 4-6 Weeks Goal Progress: Progressing Anticipated Interventions Anticipated Interventions Patient/Client Instruction: Educate patient on: Condition and Plan of Care For the Purpose of:: To decrease pain, To increase ROM, To improve muscle performance and motor function, To improve ability to perform ADL's, To increase tolerance to activity/condition/position, To improve ability of physical actions for home/community/work/leisure, To improve health of tissue, To decrease soft tissue restriction, To increase flexibility/ROM and To improve tolerance to ADL's Therapeutic Exercise to Include: Strength training, Postural training, Flexibilty training and Active ROM For the Purpose of:: To decrease pain, To increase ROM, To improve muscle performance and motor function, To increase tolerance to activity/condition/position, To improve ability of physical actions for home/community/work/leisure, To improve health of tissue, To decrease soft tissue restriction and To increase flexibility/ROM Manual Therapy Techniques to Include: Mobilization Comment: CERVICAL TRACTION For the Purpose of:: To decrease pain and To increase ROM TENS: Yes IF ES: Yes Cryotherapy (ice pack, ice massage): Yes Thermo therapy (hot pack): Yes Ultrasound (thermal/non thermal): Yes Intermittent cervical traction: Yes For the Purpose of:: To decrease pain and To increase ROM Re-Evaluation Ending Re-evaluation ending: Please do not hesitate to contact me at [phone] by phone or if you have questions or concerns regarding this new plan of care! Sincerely, Luis Alonzo, PT, Cert MDT, OCS
--- NOTE | 2024-12-16 11:52 | HP.PTDCSUM ---
Discharge Summary D/C summary: It has been my pleasure to treat BRAN DAY referred by Dr. Erickson Kimble DO, with the diagnosis of CERVICALGIA for a total of 17 visit(s). Discharge Date: 12/16/24 Please see the following information for a summary of their discharge status. Subjective Subjective: Pain better band stretches help and neck stretches -pain can wake patient throughout night -Patient able to do most ADLS around home -Denies paresthesia/tinglig Pain Bilateral Neck: Pain Intensity (Out of 10): 0 Overall Improvement % Improvement: 50 Objective Objective/Function: OSTURE: mild forward posture PALAPTION: unremarkable NEURO: denies paresthesia/tingling ,reflexes C5-6-7 2/3 AROM: BUE WFL MMT: grossly 4/5 CERVICAL ROM: flexion min loss ,rotation min loss ,lateral flexion min/MOD RIGHT ,left min ,rotation min loss ,retraction MIN ,EXTENSION WFL C/S Radiculapathy - Left Upper limb tension test: Negative C/S Radiculapathy - Right Upper limb tension test: Negative C/S Radiculapathy - Left Spurlings: Negative C/S Radiculapathy - Right Spurlings: Negative C/S Radiculapathy - Left Cervical distraction: Negative C/S Radiculapathy - Right Cervical distraction: Negative C/S Radiculapathy - Left Relief test: Negative C/S Radiculapathy - Right Relief test: Negative Sharp Lacho: Negative Vertebral Artery Test: Negative Goals Goal 1:: Patient to be I with HEP for neck Goal Progress: Progressing Goal 2:: Patient to improve cervical ROM for function of recovery for driving Goal Progress: Progressing Goal 3:: Patient to improve neck oswestry score by 5 points to improve QOL Goal Progress: Progressing Goal 4:: Patient to demonstrate 50% improve function and with less pain and for ADL Goal Progress: Progressing Plan Plan: D/C TO D/C Information Discharge Comments: hep d/c sentence: If there are questions or concerns regarding this patient's physical therapy, please feel free to call me at [phone]. Thank you for the referral of this patient. Sincerely, Luis Alonzo, PT, Cert MDT, OCS Balance/Gait/Functional tests Balance/Special Test Scores Oswestry Neck Score: 2 Improvement % Improvement: 50
== END 2024-12-16 13:10 | disposition home or self-care (01) ==
LOC: PT 11:30
PROVIDERS: PCP Family Medicine; Referring Provider Family Medicine; Visit Provider Family Medicine
DX: M54.2 Cervicalgia (principal)
CPT/HCPCS: 97110; 97140; 97162; 97530

== ENCOUNTER → 2025-03-12 | Outpatient (CLI) | payer MEDICARE, OTHER, SELFPAY ==
[2025-03-12 13:11] LABS: AST(SGOT) 23 U/L (<=37); Alanine Aminotransfer ALT/SGPT 21 U/L (<=46); Albumin, Serum 4.1 g/dL (3.4-4.8); Alkaline Phosphatase 77 U/L (40-129); Anion Gap 9 (5-15); BUN 21 mg/dL (4-19); BUN/Creat Ratio 24.4 RATIO (10-20); Calcium,Total 10.4 mg/dL (7.6-11.0); Carbon Dioxide 25.4 mmol/L (21.0-32.0); Chloride 105 mmol/L (98-108); Cholesterol 152 mg/dL (<=200); Globulin 2.3 g/dL (2.2-4.2); Glucose 76 mg/dL (70-99); Low Density Lipoprotein Calc. 84 mg/dL; PSA,Total- Diagnostic 1.82 ng/mL (0.00-4.00); Potassium 4.5 mmol/L (3.3-5.1); Triglycerides 106 mg/dL; Very Low Density Lipoprotein 21 mg/dL (5-40); cholesterol:hdl ratio screen 3.13
== END | disposition home or self-care (01) ==
LOC: MTLAB 10:03
PROVIDERS: PCP Family Medicine; Referring Provider Family Medicine; Visit Provider Family Medicine
DX: Z00.00 Encounter for general adult medical examination without abnormal findings (principal); E78.5 Hyperlipidemia, unspecified; R35.1 Nocturia; E04.1 Nontoxic single thyroid nodule
CPT/HCPCS: 36415; 80053; 80061; 84153; 84443

== ENCOUNTER → 2025-03-21 | Outpatient (CLI) | payer MEDICARE, OTHER, SELFPAY ==
--- NOTE | 2025-03-21 12:41 | US_ITS ---
PROCEDURE: THYROID 03/21/2025 REASON FOR EXAM: THYROID NODULE TECHNIQUE: Procedure Code: USTHY Modality: US Procedure: THYROID COMPARISON: None FINDINGS: Right thyroid lobe size: 4.9 x 2.7 x 2.1 cm Left thyroid lobe size: 4.9 x 2.3 x 2.1 cm Isthmus: 2 cm Background parenchymal echotexture is homogeneous. Nodules: None of the nodules demonstrate increased vascularity 1. Lobe: Right, Location: Mid, Size: 0.5 x 0.5 x 0.3 cm, Stability: N/A Composition: Solid or almost completely solid (+2) Echogenicity: Hypoechoic (+2) Margin: Smooth (+0) Shape: Wider than tall (+0) Echogenic Foci: None (+0) TI-RADS: TR 4 2. Lobe: Right, Location: Mid to lateral, Size: 0.7 x 0.5 x 0.5 cm, Stability: N/A Composition: Solid or almost completely solid (+2) Echogenicity: Hypoechoic Margin: Smooth (+0) Shape: Wider than tall (+0) Echogenic Foci: None (+0) TI-RADS: 2 3. Lobe: Left, Location: Mid, Size: 0.4 x 0.3 x 0.2 cm, Stability: N/A Composition: Cystic or mostly cystic (+0) Echogenicity: Anechoic (+0) Margin: Smooth (+0) Shape: Wider than tall (+0) Echogenic Foci: None (+0) TI-RADS: 1 4. Lobe: Left, Location: Mid, Size: 0.5 x 0.4 x 0.3 cm, Stability: N/A Composition: Solid or almost completely solid (+2) Echogenicity: Hypoechoic Margin: Smooth (+0) Shape: Wider than tall (+0) Echogenic Foci: None (+0) TI-RADS: 2 US/Thyroid IMPRESSION: TR 4. The above findings are most compatible with multinodular goiter. RECOMMENDATION: Based on most suspicious nodule. Nodule size = largest diameter Only evaluate nodule if =>5 mm. Growth > 20% in 2 dimensions = worsening. Follow up to 4 nodules. Recommend biopsy for no more than 2 nodules. Reading Location: [id number]
--- OUTSIDE RECORDS SUMMARY | 2025-03-21 13:19 | XMS RPT_ITS | CCD ---
Author Organization [facility] Care Team Providers Care Lost Charge Card Clerk Name Role Phone Dr. Erickson Kimble Primary Care Provider Dr. Erickson Kimble Attending Provider Dr. Erickson Kimble Referring Provider Dr. Erickson Kimble Primary Care Provider [phone] Dr. Erickson Kimble Referring Provider MARIBEL Rangel Attending Provider MARIBEL Jordan Attending Provider Dr. Erickson Kimble Attending Provider Dr. Erickson Kimble Primary Care Provider [phone] Dr. Erickson Kimble Referring Provider [phone] MARIBEL Rangel Attending Provider Dr. Erickson Kimble Primary Care Provider [phone] Dr. Erickson Kimble Referring Provider KILLIAN [place] Attending Provider Dr. Erickson Kimble Attending Provider Dr. Erickson Kimble Primary Care Provider [phone] Dr. Erickson Kimble Attending Provider Dr. Erickson Kimble Referring Provider [phone] ROCK WISE, VICTORINO Sprague Attending Unavailable PHYSICIAN, NONE Primary Care Unavailable Dr. Erickson Kimble DO Primary Care Provider [phone] Dr. Erickson Kimble DO Attending Provider Dr. Erickson Kimble DO Referring Provider Dr. Philip Elise MD Attending Provider Brown, Erickson R Attending Unavailable Brown, Erickson R Referring Unavailable Brown, Erickson R Primary Care Unavailable Brown, Erickson R Primary Care Unavailable Brown, Erickson R Attending Unavailable Brown, Erickson R Referring Unavailable Brown, Erickson R Primary Care Unavailable Brown, Erickson R Attending Unavailable Brown, Erickson R Referring Unavailable Brown, Erickson R Attending Unavailable Brown, Erickson R Referring Unavailable Brown, Erickson R Primary Care Unavailable Brown, Erickson R Attending Unavailable Brown, Erickson R Referring Unavailable Brown, Erickson R Primary Care Unavailable Brown, Erickson R Primary Care Unavailable Philip Elise Attending Unavailable Brown, Erickson R Attending Unavailable Brown, Erickson R Referring Unavailable Brown, Erickson R Primary Care Unavailable Medications Current Medications Medication Drug Class(es) Dates Sig (Normalized) Sig (Original) [place] (Nk) (4 sources) Start: 12-28-2023 [place] (Nk) A ctive December 28, 2023 12:00am Start: 03-09-2023 [place] (Nk) A ctive March 09, 2023 12:00am Start: 12-24-2021 [place] (Nk) A ctive December 23, 2021 11:00pm Completed/Discontinued Medications Medication Drug Class(es) Dates Sig (Normalized) Sig (Original) amoxicillin 500 mg oral capsule (15 sources) Penicillin-class Antibacterial Start: 08-23-2023 End: 09-20-2023 take 1 capsule by mouth every eight hours Amoxicillin 500 mg capsule Discontinued 500 mg PO Q8H 20 0 August 23, 2023 4:33pm September 20, 2023 1:49pm Start: 06-08-2022 End: 07-08-2022 take 1 capsule by mouth every eight hours Amoxicillin 500 mg capsule Discontinued 500 mg PO Q8H 20 0 June 08, 2022 12:27pm July 08, 2022 2:11pm Start: 09-08-2020 End: 09-09-2020 take 1 capsule by mouth every eight hours Amoxicillin 500 mg capsule Discontinued 500 mg PO Q8H 20 0 September 08, 2020 12:00am September 09, 2020 8:47am amoxicillin 875 mg / clavulanate 125 mg oral tablet (6 sources) Penicillin-class Antibacterial Start: 11-29-2023 End: 12-28-2023 Amoxicillin-Pot Clavulanate 875-125 mg tablet Discontinued 1 {tbl} PO TWICE A DAY 20 November 29, 2023 12:00am December 28, 2023 1:00pm Start: 12-07-2022 End: 01-03-2023 Amoxicillin-Pot Clavulanate (Augmentin) 500-125 mg tablet Discontinued 1 {tbl} PO THREE TIMES A DAY 20 December 07, 2022 12:00am January 03, 2023 9:32am azithromycin 250 mg oral tablet (4 sources) Macrolide Antimicrobial Start: 12-05-2022 End: 01-03-2023 Azithromycin 250 mg tablet Discontinued 0 PO .COMPLEX 6 December 05, 2022 12:00am January 03, 2023 9:32am Chronic frontal sinusitis Chronic frontal sinusitis For 250 mg dose pack: take 500 mg today (day 1), then 250 mg for 4 days (days 2-5) PO Start: 12-05-2022 End: 01-03-2023 Azithromycin Discontinued 0 PO .COMPLEX 6 December 05, 2022 12:00am January 03, 2023 9:32am For 250 mg dose pack: take 500 mg today (day 1), then 250 mg for 4 days (days 2-5) PO benzonatate 100 mg oral capsule (6 sources) Non-narcotic Antitussive Start: 07-18-2022 End: 07-22-2022 take 2 capsules by mouth three times daily as needed for cough Benzonatate 100 mg capsule Discontinued 200 mg PO THREE TIMES A DAY as needed for cough 30 July 18, 2022 12:00am July 22, 2022 11:43am Start: 07-18-2022 End: 07-22-2022 take 200 mg by mouth three times daily Benzonatate Discontinued 200 MG PO THREE TIMES A DAY July 18, 2022 12:00am July 22, 2022 11:43am ciprofloxacin 250 mg oral tablet (7 sources) Quinolone Antimicrobial Start: 05-27-2021 End: 09-09-2021 take 1 tablet by mouth twice daily Ciprofloxacin Hcl (Cipro) 250 mg tablet Discontinued 250 mg PO TWICE A DAY May 27, 2021 1:00am September 09, 2021 2:32pm cyclobenzaprine hydrochloride 5 mg oral tablet (14 sources) Muscle Relaxant Start: 11-10-2020 End: 01-06-2021 take 1 tablet by mouth at bedtime Cyclobenzaprine 5 mg tablet Discontinued 5 mg PO AT BEDTIME 10 1 December 01, 2020 2:11pm January 06, 2021 2:23pm dexamethasone 6 mg oral tablet (6 sources) Corticosteroid Start: 07-08-2022 End: 07-18-2022 take 1 tablet by mouth once daily Dexamethasone 6 mg tablet Discontinued 6 mg PO DAILY 10 10 July 08, 2022 1:00am July 17, 2022 1:00am July 18, 2022 12:04am 12 hr guaiFENesin 600 mg extended release oral tablet (6 sources) Start: 07-18-2022 End: 08-31-2022 take 1 tablet by mouth every twelve hours as needed, then take 1 tablet by mouth every twelve hours as needed Guaifenesin (Mucinex) 600 mg tablet extended release 12hr Discontinued 600 mg PO Q12H as needed July 18, 2022 12:00am August 31, 2022 11:28am meloxicam 7.5 mg oral tablet (7 sources) Nonsteroidal Anti-inflammatory Drug Start: 10-30-2020 End: 11-10-2020 take 7.5-15 mg by mouth once daily Meloxicam 7.5 mg tablet Discontinued 7.5 - 15 mg PO DAILY 14 October 30, 2020 12:00am November 10, 2020 2:35pm predniSONE 10 mg oral tablet (8 sources) Start: 09-20-2023 End: 11-29-2023 Prednisone 10 mg tablet Discontinued 10 mg PO As Directed September 20, 2023 12:00am November 29, 2023 9:33am see taper instructions: 4 tabs x 3 days, 3 tabs x 3 days, 2 tabs x 3 days, 1 tab x 2 days Start: 08-03-2022 End: 08-31-2022 take 4 tablets by mouth once daily, then take 3 tablets by mouth once daily, then take 2 tablets by mouth once daily, then take 1 tablet by mouth once daily Prednisone 10 mg tablet Discontinued 10 mg PO As Directed August 03, 2022 12:00am August 31, 2022 11:28am 4 tablets daily x3 days, then 3 tablets daily x3 days, then 2 tablets daily x3 days, then 1 tablet daily x3 days 72 hr scopolamine 0.0139 mg/hr transdermal system (14 sources) Anticholinergic Start: 03-08-2022 End: 07-18-2022 Scopolamine Base (Transderm-Scop) 1 mg over 3 days patch 3 day Discontinued 1 NMA TD Every 3 Days as needed for motion sickness 4 March 08, 2022 10:31am July 18, 2022 12:35pm Start: 09-08-2020 End: 10-27-2020 Scopolamine Base (Transderm- Scop) 1 mg over 3 days patch 3 day Discontinued 1 NMA TD Every 3 Days as needed for motion sickness 4 September 08, 2020 12:00am October 27, 2020 11:17am traMADol hydrochloride 50 mg oral tablet (7 sources) Opioid Agonist Start: 10-29-2020 End: 10-30-2020 take 1 tablet by mouth every twelve hours as needed for pain Tramadol 50 mg tablet Discontinued 50 mg PO Q12H as needed for pain 14 0 October 29, 2020 12:00am October 30, 2020 1:02pm triamcinolone acetonide 0.055 mg/actuat metered dose nasal spray (6 sources) Corticosteroid Start: 07-18-2022 End: 08-31-2022 Triamcinolone Acetonide (Nasacort) 55 mcg aerosol,spray Discontinued 2 NMA INTRANASAL DAILY 16.9 0 July 18, 2022 12:00am August 31, 2022 11:28am administer into each nostril Start: 07-18-2022 End: 08-31-2022 take 1 spray(s) nasal route once daily Triamcinolone Acetonide (Nasacort) 55 mcg aerosol,spray Discontinued 2 SPRAY INTRANASAL DAILY 16.9 July 18, 2022 12:00am August 31, 2022 11:28am administer into each nostril Problems Problem Classification Problem Date Documented Date Episodic/Chronic Acute bronchitis (8 sources) Acute bronchitis; Translations: [Acute bronchitis, unspecified] 07-18-2022 Episodic Allergic reactions (15 sources) Acute urticaria; Translations: [Other urticaria] 01-22-2020 Episodic Disorders of lipid metabolism (1 source) Hyperlipidemia, unspecified; Translations: [Hyperlipidemia, unspecified] Onset: 03-12-2025 Chronic Genitourinary symptoms and ill-defined conditions (1 source) Nocturia; Translations: [Nocturia] Onset: 03-12-2025 Episodic Osteoarthritis (14 sources) Arthritis; Translations: [Unspecified osteoarthritis, unspecified site] 01-30-2020 Chronic Other acquired deformities (7 sources) Scoliosis deformity of spine; Translations: [Scoliosis, unspecified] 01-30-2020 Chronic Other bone disease and musculoskeletal deformities (5 sources) Exostosis; Translations: [Other specified disorders of bone, ankle and foot] 09-09-2021 Episodic Other bone disease and musculoskeletal deformities (2 sources) Other specified disorders of bone, ankle and foot; Translations: [Exostosis of bone of foot] 09-09-2021 Episodic Other circulatory disease (2 sources) Vasculitis; Translations: [Arteritis, unspecified] 09-20-2023 Chronic Other connective tissue disease (1 source) Pain in right leg; Translations: [Pain in limb] 01-03-2023 Episodic Other connective tissue disease (1 source) Synovial cyst of right popliteal space; Translations: [Synovial cyst of popliteal space [Monteiro], right knee] 05-30-2023 Episodic Other connective tissue disease (3 sources) Contracture of hamstring(s); Translations: [Disorder of muscle, unspecified] 03-09-2023 Episodic Other connective tissue disease (3 sources) Synovial cyst of popliteal space [Monteiro], right knee; Translations: [Synovial cyst of popliteal space] 05-30-2023 Episodic Other ear and sense organ disorders (2 sources) Hearing loss; Translations: [Unspecified hearing loss, unspecified ear] 03-12-2024 Chronic Other infections; including parasitic (8 sources) Late effects of other and unspecified infectious and parasitic diseases; Translations: [Multiple persistent symptoms after severe acute respiratory syndrome coronavirus 2 (S] 08-31-2022 Chronic Other injuries and conditions due to external causes (7 sources) H/O: fracture; Translations: [Personal history of (healed) traumatic fracture] 01-30-2020 Episodic Other nervous system disorders (7 sources) Disorder of left sural nerve; Translations: [Other specified mononeuropathies of left lower limb] 05-27-2021 Chronic Other nervous system disorders (1 source) Other specified mononeuropathies of left lower limb; Translations: [Other mononeuritis of lower limb] Chronic Other non-traumatic joint disorders (2 sources) Pain in right knee; Translations: [Right knee pain] 09-20-2023 Episodic Other skin disorders (7 sources) Seborrheic keratosis; Translations: [Other seborrheic keratosis] 01-30-2020 Episodic Other skin disorders (2 sources) Rash and other nonspecific skin eruption; Translations: [Rash and other nonspecific skin eruption] 08-03-2022 Episodic Other upper respiratory disease (7 sources) Seasonal allergy; Translations: [Other seasonal allergic rhinitis] 01-22-2020 Chronic Other upper respiratory disease (1 source) Other seasonal allergic rhinitis; Translations: [Allergic rhinitis, cause unspecified] Chronic Other upper respiratory infections (5 sources) Chronic frontal sinusitis; Translations: [Chronic frontal sinusitis] 12-05-2022 Chronic Other upper respiratory infections (2 sources) Nasopharyngitis; Translations: [Acute nasopharyngitis [common cold]] 09-20-2023 Episodic Skin and subcutaneous tissue infections (2 sources) Paronychia of toe of left foot; Translations: [Cellulitis of left toe] 11-29-2023 Episodic Spondylosis; intervertebral disc disorders; other back problems (20 sources) Sacroiliac disorder; Translations: [Sacrococcygeal disorders, not elsewhere classified] Onset: 12-16-2024 Episodic Sprains and strains (8 sources) Strain of Achilles tendon; Translations: [Strain of right Achilles tendon, initial encounter] 07-22-2022 Episodic Superficial injury; contusion (4 sources) Contusion of toenail; Translations: [Contusion of unspecified lesser toe(s) with damage to nail, initial encounter] 05-30-2023 Episodic Thyroid disorders (2 sources) Nontoxic single thyroid nodule; Translations: [Nontoxic single thyroid nodule] Onset: 03-12-2025 Chronic Viral infection (7 sources) Disease caused by 2019-nCoV; Translations: [COVID-19] 07-08-2022 Episodic Results Test Name Value Interpretation Reference Range Facility Comprehensive Metabolic Prof ilon 03-12-2025 Albumin [Mass/Vol] 4.1 g/dL Normal 3.4-4.8 [facility] Comment on above: Performed By: #### L 500.4050, L501.9940, L501.9520, L500.4100 #### [facility] [address] [place], [address] Albumin/Globulin [Mass ratio] 1.8 {ratio} Normal 0.9-2.4 [facility] Comment on above: Performed By: #### L 500.4050, L501.9940, L501.9520, L500.4100 #### [facility] [address] [place], [address] ALK PHOS 77 U/L Normal 40-129 [facility] Comment on above: Performed By: #### L 500.4050, L501.9940, L501.9520, L500.4100 #### [facility] [address] [place], [address] ALT [Catalytic activity/Vol] 21 U/L Normal <=46 [facility] Comment on above: Performed By: #### L 500.4050, L501.9940, L501.9520, L500.4100 #### [facility] [address] [place], [address] AST [Catalytic activity/Vol] 23 U/L Normal <=37 [facility] Comment on above: Performed By: #### L 500.4050, L501.9940, L501.9520, L500.4100 #### [facility] [address] [place], [address] Bilirubin [Mass/Vol] 0.35 mg/dL Normal 0.00-1.30 [facility] Comment on above: Performed By: #### L 500.4050, L501.9940, L501.9520, L500.4100 #### [facility] [address] [place], [address] BUN/CRE 24.4 RATIO High 10-20 [facility] Comment on above: Performed By: #### L 500.4050, [id number], L501.9520, L500.4100 #### [facility] [address] [place], [address] Calcium [Mass/Vol] 10.4 mg/dL Normal 7.6-11.0 [facility] Comment on above: Performed By: #### L 500.4050, L501.9940, L501.9520, L500.4100 #### [facility] [address] [place], [address] Chloride [Moles/Vol] 105 mmol/L Normal 98-108 [facility] Comment on above: Performed By: #### L 500.4050, L501.9940, L501.9520, L500.4100 #### [facility] [address] [place], [address] CO2 [Moles/Vol] 25.4 mmol/L Normal 21.0-32.0 [facility] Comment on above: Performed By: #### L 500.4050, L501.9940, L501.9520, L500.4100 #### [facility] [address] [place], [address] Creatinine [Mass/Vol] 0.86 mg/dL Normal 0.70-1.20 [facility] Comment on above: Performed By: #### L 500.4050, L501.9940, L501.9520, L500.4100 #### [facility] [address] [place], [address] GAP 9 Normal 5-15 [facility] Comment on above: Performed By: #### L 500.4050, L501.9940, L501.9520, L500.4100 #### [facility] [address] [place], [address] GFR/1.73 sq M.predicted among non-blacks MDRD (S/P/Bld) [Vol rate/Area] 90 mL/min/{1.73_m2} Normal >60 [facility] Comment on above: Result Comment: mL/m in/1.73m2 CKD-EPI Creatinine Equation (2020) Performed By: #### L 500.4050, L501.9940, L501.9520, L500.4100 #### [facility] [address] [place], [address] Globulin (S) [Mass/Vol] 2.3 g/dL Normal 2.2-4.2 [facility] Comment on above: Performed By: #### L 500.4050, L501.9940, L501.9520, L500.4100 #### [facility] [address] [place], [address] Glucose [Mass/Vol] 76 mg/dL Normal 70-99 [facility] Comment on above: Performed By: #### L 500.4050, L501.9940, L501.9520, L500.4100 #### [facility] [address] [place], [address] Potassium [Moles/Vol] 4.5 mmol/L Normal 3.3-5.1 [facility] Comment on above: Performed By: #### L 500.4050, L501.9940, L501.9520, L500.4100 #### [facility] [address] [place], [address] Sodium [Moles/Vol] 140 mmol/L Normal 133-145 [facility] Comment on above: Performed By: #### L 500.4050, L501.9940, L501.9520, L500.4100 #### [facility] [address] [place], [address] T PROT 6.4 g/dL Normal 5.9-8.4 [facility] Comment on above: Performed By: #### L 500.4050, L501.9940, L501.9520, L500.4100 #### [facility] [address] [place], [address] Urea nitrogen [Mass/Vol] 21 mg/dL High 4-19 [facility] Comment on above: Performed By: #### L 500.4050, L501.9940, L501.9520, L500.4100 #### [facility] [address] [place], [address] Internal Medicine Office Vis iton 03-12-2025 Internal Medicine Office Visit [facility] Internal Medicine [address] [place], [place] [address] OFFICE VISIT Date of Service: 03/12/25 MR#: [id number] Acct: [id number] Name: BRAN DAY Rep #: [id number] : 1950 Provider: Dr. Erickson nguyen, DO Age/Sex: 74/M Location[place] [facility] [place] Status: Signed Intake Vital Signs 11/05/24 10:03 03/12/25 09:04 Height 6 ft 1 in 6 ft 1 in Weight: 167 lb 4 oz 169 lb BMI 22.0 22.3 BP 118/64 122/76 H Blood Pressure Location Lt brachial Lt brachial Position Sitting Sitting Respiration 16 18 Pulse 64 72 Pulse Source Monitor Monitor Temp 98.4 F 97.0 F L Temp Source Temporal Temporal Pulse Oximetry (%) 96 97 Oxygen Delivery Method room air room air Intake Visit Reasons: WELLNESS Chief Complaint: Physical exam. Is patient in pain?: Yes (3 lower back, neck, bilateral knees ) Allergies No Known Allergies Allergy (Verified 03/12/25 09:05) Medications ???Medication ???Instructions ???Recorded ???Confirmed ???Type rmxhfmnb-hdcyhdst-yh lic acid 400 tab PO 03/12/25 03/12/25 History mcg-vit K 20 mcg-lycop 300 mcg tablet (One-A-Day Men's Multivitamin) Have you fallen in the past year?: No PFSH Medical History Paronychia of great toe of left foot Allergic dermatitis Scoliosis History of broken collarbone Arthritis Acute urticaria Seasonal allergies Generalized osteoarthrosis, unspecified site Surgical History History of tonsillectomy H/O knee surgery Family History Father Anxiety Cancer stomach Grandfather Cancer Mother Hyperlipemia Social History Smoking Status: Never smoker alcohol intake: never substance use type: does not use what type of physical activity do you participate in: walking and weight training frequency: daily HPI HPI Chief Complaint: Physical exam. Details: BRAN DAY, is a 74 M who presents to the office today for an annual physical exam. He has several complaints. He feels that his voice is softer and he has a hard time projecting his speech. He is having problems with chronic neck pain chronic back pain and chronic knee pain and is seeing physical therapy and takes medicine and does stretching exercises. The musculoskeletal problems do not seem to be major they are chronic and reoccurring. He did see a workers' compensation hearings officer who said that he has some hearing loss but not enough to justify hearing aid at this time. ROS Const Constitutional: No body ache, chills, excessive sweating, fatigue, fever(s), frequent falls, headache(s), snoring, weight change, sleep problems, abnormal sleep pattern or change in appetite Eyes Eyes: No blurry vision, change in vision, eye pain or Light sensitivity ENT ENT: No abnormal hearing, ear or mastoid pain, tinnitus, nasal congestion, headache(s), neck pain or sore throat Resp Respiratory: No cough, shortness of breath, snoring or wheezing Cardio Cardiology: No chest pain at rest, chest pain with exertion, excessive sweating, shortness of breath, dyspnea on exertion, lightheadedness, orthopnea or palpitations Gastro GI: No abdominal pain, change in bowel habits, constipation, cramping, diarrhea, nausea/dyspepsia or vomiting Genitourinary Male: No burning urination, painful urination, urinary incontinence or urinary frequency Musc Musculoskeletal: No abnormal gait, joint pain, back pain, limited range of motion, neck pain, numbness or tingling Skin Skin: No dry skin, redness, lesions, itchy eyes, rash or wounds Neuro Neurology: No abnormal gait, abnormal hearing, frequent falls, headache(s), memory loss, numbness or tingling Psych Psychiatric: No abnormal sleep pattern, No anxiety, No change in appetite, No irritability, No memory loss and No Thoughts of harming yourself/Others Endo Endocrine: No cold intolerance, excessive sweating, fatigue, flushing, heat intolerance, increased thirst/drinking, increased hunger or weight change Aller/Imm Allergy/Immunologic: No itchy eyes, seasonal allergy symptoms, hives or wheezing Deandre/Lymp Hematologic/Lymphati c: No easy bleeding, easy bruising, enlarged lymph nodes or other Exam Const General: cooperative and healthy appearing Nutritional Appearance: average body habitus HENMT Head: normal to inspection Ears: TM's normal bilaterally and EAC's normal Nose: external nose normal Face and sinus: normal facial exam Mouth: oral mucosae normal Teeth and gingiva: dentition normal Throat: posterior oropharynx normal Eyes General: appearance normal, both eyes and all related structures Neck Neck: (more content not included)... Normal [facility] Lipid Profileon 03-12-2025 CHOL:HDL 3.13 Normal [facility] Comment on above: Performed By: #### L 500.4050, L501.9940, L501.9520, L500.4100 #### [facility] [address] [place], [address] Cholesterol [Mass/Vol] 152 mg/dL Normal <=200 [facility] Comment on above: Result Comment: Chol esterol level, Desirable <200 mg/dL Borderline high cholesterol 200-239 mg/dL High cholesterol >=240 mg/dL Recommendations of the NCEP Adult Treatment Panel for the following risk-cutoff thresholds for the [place] population. Performed By: #### L 500.4050, L501.9940, L501.9520, L500.4100 #### [facility] [address] [place], [address] Cholesterol in HDL [Mass/Vol] 49 mg/dL Normal [facility] Comment on above: Result Comment: [place] onal Cholesterol Education Program (NCEP) guidelines: <40 mg/dL: Low HDL-cholesterol (major risk factor for CHD) >= 60 mg/dL: High HDL-cholesterol (negative risk factor for CHD) HDL-cholesterol is affected by a number of factors, e.g. smoking, exercise, hormones, sex and age. Performed By: #### L 500.4050, L501.9940, L501.9520, L500.4100 #### [facility] [address] [place], [address] Cholesterol in LDL [Mass/Vol] 84 mg/dL Normal [facility] Comment on above: Result Comment: Bord spcmyp=791-397 mg/dL Higher Eaik=851 mg/dL or greater Vides Equation 2020 for LDL-C Performed By: #### L 500.4050, L501.9940, L501.9520, L500.4100 #### [facility] [address] [place], [address] Cholesterol in VLDL [Mass/Vol] 21 mg/dL Normal 5-40 [facility] Comment on above: Performed By: #### L 500.4050, L501.9940, L501.9520, L500.4100 #### [facility] [address] [place], [address] Triglyceride [Mass/Vol] 106 mg/dL Normal [facility] Comment on above: Result Comment: The drugs N-Acetylcysteine and Metamizole may falsely depress this assay. Normal range: <150 mg/dL Borderline High: 150-199 mg/dL High: 200-499 mg/dL Very High: >500 mg/dL Performed By: #### L 500.4050, L501.9940, L501.9520, L500.4100 #### [facility] [address] [place], [address] PSA,Total- Diagnosticon PSA, DIAGNOSTIC 1.82 ng/mL Normal 0.00-4.00 [facility] Comment on above: Result Comment: This test was performed using the [employer] tPSA method. Measured values of a patient??sample can vary depending on the testing procedure used. PSA values determined on patient samples by different testing procedures cannot be used interchangeably. If there is a change in PSA assays while monitoring therapy, sequential testing should be performed to confirm baseline values. Performed By: #### L 500.4050, L501.9940, L501.9520, L500.4100 #### [facility] [address] [place], [address] Thyroid Stim Hormone (TSH)on 03-12-2025 TSH 1.070 uIU/mL Normal 0.300-4.200 [facility] Comment on above: Performed By: #### L 500.4050, L501.9940, L501.9520, L500.4100 #### [facility] [address] [place], [place], [address] PT D/C Summary (1)on 025 PT D/C Summary (1) [facility] [address] [place] [address] [address] [place] [address] / REHABILITATION SERVICES DISCHARGE SUMMARY MR#: [id number] Acct: [id number] Name: BRAN DAY Rep #: [id number] : 1950 74 From: Luis Alonzo PT, Cert. MD Sprague, OCS Referring Dr.: Dr. Erickson Kimble, Status: REG RCR Insurance: MEDICARE PART A B [facility] Discharge Summary D/C summary: It has been my pleasure to treat BRAN DAY referred by Dr. Erickson Kimble, , with the diagnosis of CERVICALGIA for a total of 17 visit(s). Discharge Date: 08/11/25 Please see the following information for a summary of their discharge status. Subjective Subjective: Pain better band stretches help and neck stretches -pain can wake patient throughout night -Patient able to do most ADLS around home -Denies paresthesia/tinglig Pain Bilateral Neck: Pain Intensity (Out of 10): 0 Overall Improvement % Improvement: 50 Objective Objective/Function: OSTURE: mild forward posture PALAPTION: unremarkable NEURO: denies paresthesia/tingling ,reflexes C5-6-7 2/3 AROM: BUE WFL MMT: grossly 4/5 CERVICAL ROM: flexion min loss ,rotation min loss ,lateral flexion min/MOD RIGHT ,left min ,rotation min loss ,retraction MIN ,EXTENSION WFL C/S Radiculapathy - Left Upper limb tension test: Negative C/S Radiculapathy - Right Upper limb tension test: Negative C/S Radiculapathy - Left Spurlings: Negative C/S Radiculapathy - Right Spurlings: Negative C/S Radiculapathy - Left Cervical distraction: Negative C/S Radiculapathy - Right Cervical distraction: Negative C/S Radiculapathy - Left Relief test: Negative C/S Radiculapathy - Right Relief test: Negative Sharp Lacho: Negative Vertebral Artery Test: Negative Goals Goal 1:: Patient to be I with HEP for neck Goal Progress: Progressing Goal 2:: Patient to improve cervical ROM for function of recovery for driving Goal Progress: Progressing Goal 3:: Patient to improve neck oswestry score by 5 points to improve QOL Goal Progress: Progressing Goal 4:: Patient to demonstrate 50% improve function and with less pain and for ADL Goal Progress: Progressing Plan Plan: D/C TO D/C Information Discharge Comments: hep d/c sentence: If there are questions or concerns regarding this patient's physical therapy, please feel free to call me at [phone]. Thank you for the referral of this patient. Sincerely, Luis Alonzo, PT, Cert MDT, OCS Balance/Gait/Functio nal tests Balance/Special Test Scores Oswestry Neck Score: 2 Improvement % Improvement: 50 12/16/24 1232 CC: Dr. Erickson Kimble, DO PEPPER Signed Normal [facility] Re-Evaluation - PT (1)on Re-Evaluation - PT (1) [facility] [address] [place] [address] / REEVALUATION / MEDICARE RECERTIFICATION PHYSICAL THERAPY MR#: [id number] Acct: [id number] Name: BRAN DAY Rep #: [id number] : 1950 74 From: Luis Alonzo PT, Cert. MD Sprague, OCS Referring Dr.: Dr. Erickson Kimble DO Status:REG RCR Insurance: MEDICARE PART A B [facility] Re-Evaluation Intro: Dr. Erickson Kimble, DO, It has been my pleasure to treat BRAN DAY over the last 9 visits for CERVICALGIA. Please see the progress note below for an update on the physical therapy plan of care! Subjective Subjective: Pain is intermittent Although today is a good day Patient has better idea to manage and decrease ,meaning able to manage pain Seen DR Objective Objective/Function: POSTURE: mild forward posture PALAPTION: unremarkable NEURO: denies paresthesia/tingling ,reflexes C5-6-7 2/3 AROM: BUE WFL MMT: grossly 4/5 CERVICAL ROM: flexion min loss ,rotation min loss ,lateral flexion min ,rotation min loss ,retraction MIN ,EXTENSION C/S Radiculapathy - Left Upper limb tension test: Negative C/S Radiculapathy - Right Upper limb tension test: Negative C/S Radiculapathy - Left Spurlings: Negative C/S Radiculapathy - Right Spurlings: Negative C/S Radiculapathy - Left Cervical distraction: Negative C/S Radiculapathy - Right Cervical distraction: Negative C/S Radiculapathy - Left Relief test: Negative C/S Radiculapathy - Right Relief test: Negative Sharp Lacho: Negative Vertebral Artery Test: Negative Plan Plan Plan: PT INTERVENTIONS POSTURAL EX'S ,CERVICAL ROM ,FLEXABILITY , MANUAL THERAPY /STM/ MOBILIZATION/TRACTIO N AND CERVICAL Balance/Gait/Functio nal tests Balance/Special Test Scores Oswestry Neck Score: 8 Goals Goals Goal 1:: Patient to be I with HEP for neck Goal Time Frame: 4-6 Weeks Goal Progress: Progressing Goal 2:: Patient to improve cervical ROM for function of recovery for driving Goal Time Frame: 4-6 Weeks Goal Progress: Progressing Goal 3:: Patient to improve neck oswestry score by 5 points to improve QOL Goal Time Frame: 4-6 Weeks Goal Progress: Progressing Goal 4:: Patient to demonstrate 50% improve function and with less pain and for ADL Goal Time Frame: 4-6 Weeks Goal Progress: Progressing Anticipated Interventions Anticipated Interventions Patient/Client Instruction: Educate patient on: Condition and Plan of Care For the Purpose of:: To decrease pain, To increase ROM, To improve muscle performance and motor function, To improve ability to perform ADL's, To increase tolerance to activity/condition/p osition, To improve ability of physical actions for home/community/work/ leisure, To improve health of tissue, To decrease soft tissue restriction, To increase flexibility/ROM and To improve tolerance to ADL's Therapeutic Exercise to Include: Strength training, Postural training, Flexibilty training and Active ROM For the Purpose of:: To decrease pain, To increase ROM, To improve muscle performance and motor function, To increase tolerance to activity/condition/p osition, To improve ability of physical actions for home/community/work/ leisure, To improve health of tissue, To decrease soft tissue restriction and To increase flexibility/ROM Manual Therapy Techniques to Include: Mobilization Comment: CERVICAL TRACTION For the Purpose of:: To decrease pain and To increase ROM TENS: Yes IF ES: Yes Cryotherapy (ice pack, ice massage): Yes Thermo therapy (hot pack): Yes Ultrasound (thermal/non thermal): Yes Intermittent cervical traction: Yes For the Purpose of:: To decrease pain and To increase ROM Re-Evaluation Ending Re-evaluation ending: Please do not hesitate to contact me at [phone] by phone or if you have questions or concerns regarding this new plan of care! Sincerely, Luis Alonzo PT, Cert MDT, OCS 11/15/24 0851 CC: Dr. Erickson Kimble, DO PEPPER Signed For Medicare only, by signing this I certify the plan of care. Physicians Signature Date Normal [facility] Internal Medicine Office Vis iton 11-05-2024 Internal Medicine Office Visit [facility] [address] [place] [address] [place] [address] OFFICE VISIT Date of Service: 11/05/24 MR#: [id number] Acct: [id number] Name: BRAN DAY Rep #: [id number] : 1950 Provider: Dr. 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: No Accompanied by: Self Is patient in pain?: Yes (neck pain ) Pain scale (1-10): 4 Allergies No Known Allergies Allergy (Verified 11/05/24 10:03) Medications ???Medication ???Instructions ???Recorded ???Confirmed ???Type NK 12/28/23 11/05/24 History Have you fallen in the past year?: No PFSH Medical History Paronychia of great toe of left foot Allergic dermatitis Scoliosis History of broken collarbone Arthritis Acute urticaria Seasonal allergies Generalized osteoarthrosis, unspecified site Surgical History History of tonsillectomy H/O knee surgery Family History Father Anxiety Cancer stomach Grandfather Cancer Mother Hyperlipemia Social History Smoking Status: Never smoker alcohol intake: never substance use type: does not use what type of physical activity do you participate in: walking and weight training frequency: daily HPI HPI Chief Complaint: neck pain Details: BRAN GEHRES, is a 74 M who presents to the office today for discussion of his neck pain. He started physical therapy and the pain is somewhat better. He has mostly normal range of motion through the neck and no radicular nerve signs. 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 ROS Const Constitutional: No body ache, excessive sweating, fatigue, fever(s), frequent falls, headache(s), snoring, weakness, weight change, sleep problems or change in appetite Eyes Eyes: No blurry vision, change in vision, eye pain or Light sensitivity ENT ENT: No abnormal hearing, ear or mastoid pain, tinnitus, nasal congestion, headache(s), neck pain or sore throat Resp Respiratory: No cough, shortness of breath, snoring or wheezing Cardio Cardiology: No chest pain at rest, chest pain with exertion, excessive sweating, shortness of breath, dyspnea on exertion, lightheadedness, orthopnea or palpitations Gastro GI: No abdominal pain, change in bowel habits, constipation, cramping, diarrhea, nausea/dyspepsia or vomiting Genitourinary Male: No burning urination, painful urination, urinary incontinence, urinary frequency or blood in urine Musc Musculoskeletal: No abnormal gait, joint pain, back pain, limited range of motion, neck pain, numbness, stiffness, tingling or Arthritis Skin Skin: No dry skin, redness, lesions, itchy eyes, rash or wounds Neuro Neurology: No abnormal gait, abnormal hearing, abnormal speech, dizziness, weakness, frequent falls, headache(s), memory loss, numbness or tingling Psych Psychiatric: No anxiety, No change in appetite, No depression, No memory loss and No Thoughts of harming yourself/Others Endo Endocrine: No cold intolerance, excessive sweating, fatigue, flushing, heat intolerance, increased thirst/drinking, increased hunger or weight change Aller/Imm Allergy/Immunologic: No itchy eyes, seasonal allergy symptoms, hives or wheezing Deandre/Lymp Hematologic/Lymphati c: No easy bleeding, easy bruising or enlarged lymph nodes Exam Const General: cooperative and healthy appearing Nutritional Appearance: average body habitus HENMT Head: normal to inspection Neck Neck: normal visual inspection, limited ROM and nontender Lymphatic: other Other: Some decrease in sidebending motion to the right and to the left. Flexion and extension appear normal. Rotation is normal. Resp Auscultation: Bilateral: Clear to Auscultation Cardio Palpation: normal PMI Rate: regular rate Rhythm: regular rhythm Musc Musculoskeletal: Yes joint tenderness Coding Level of Care Code Off vis,est,level 3 Diagnoses Neck pain M54.2 Assessment and Plan Assessment and Plan (1) Neck pain: Status: Chronic Plan: I discussed the fact that there are 3 levels of discs in his neck that are stenosed. I have also told him that he has no radicular signs so neck surgery is certainly nothing that would be considered at this time. I think ph (more content not included)... Normal [facility] Inital Evaluation (1) - PTon 10-18-2024 Inital Evaluation (1) - PT [facility] [address] [place] [address] / REHABILITATION SERVICES INITIAL EVALUATION MR#: [id number] Acct: [id number] Name: BRAN DAY Rep #: [id number] : 1950 74 From: Luis Alonzo PT, Landon. T, OCS Referring Dr.: Dr. Erickson Kimble, Status: REG RCR Insurance: MEDICARE PART A B [facility] Patient's Visit Information Visit Information Visit Information: BRAN DAY is a 74 year old M referred to Physical Therapy by Dr. Erickson Kimble, with a diagnosis of CERVICALGIA. Date of Evaluation: 10/18/24 Physical Therapist: Luis Alonzo PT, Cert T, OCS Visit Plan Frequency: 2x /Week Duration: 4 Weeks Plan: PT INTERVENTIONS POSTURAL EX'S ,CERVICAL ROM ,FLEXABILITY , AND ICTX 15#-22# [id number] Subjective Subjective: This 74 y/o male presents to physical therapy with cervical pain. Patient has seen several months with progressively worse. Seen DR x-rays showed C4-5 severe disc space narrowing with degenerative endplate/uncovertebr al changes, cnvm-ug-pcygetap right and mild appearing left osseous foraminal narrowing C5-6 pclaahds-kf-msuaeb disc space narrowing with degenerative endplate/uncovertebr al changes, kead-zu-rfqaxewq right and ilzc-qk-zqdsgczy left appearing osseous foraminal narrowing C6-7 severe disc space narrowing with degenerative endplate/uncovertebr al changes. No medication. Location of symptoms cervical region. Symptoms described as tightness. Aggravating worse sitting ,AM ,driving with driving. Alleviating factors rest ,heat. Denies SANCHEZ/tinnitus/nausea. Denies paranesthesia/tingli ng and no arm weakness or radiculopathy. Patient sleeping okay. Patient has no trauma. Patient has no abnormal night pain.Patient condition affects QOL/function/housewo rk tasks. Patient goals to decrease pain. SOCAIL : marrried VOCATION: Pain Bilateral Neck: Pain Intensity (Out of 10): 2 Pain Intensity Range: 10 Objective Objective: POSTURE: mild forward posture PALAPTION: unremarkable NEURO: denies paresthesia/tingling ,reflexes C5-6-7 2/3 AROM: BUE WFL MMT: grossly 4/5 CERVICAL ROM: flexion min loss ,rotation min loss ,lateral flexion min ,rotation min loss ,retraction WFL Special Tests C/S Radiculapathy - Left Upper limb tension test: Negative C/S Radiculapathy - Right Upper limb tension test: Negative C/S Radiculapathy - Left Spurlings: Negative C/S Radiculapathy - Right Spurlings: Negative C/S Radiculapathy - Left Cervical distraction: Negative C/S Radiculapathy - Right Cervical distraction: Negative C/S Radiculapathy - Left Relief test: Negative C/S Radiculapathy - Right Relief test: Negative Sharp Lacho: Negative Vertebral Artery Test: Negative Alar Ligament Test: Negative Balance/Special Test Scores Oswestry Neck Score: 9 Goals Goal 1:: Patient to be I with HEP for neck Goal Time Frame: 4-6 Weeks Goal 2:: Patient to improve cervical ROM for function of recovery for driving Goal Time Frame: 4-6 Weeks Goal 3:: Patient to improve neck oswestry score by 5 points to improve QOL Goal Time Frame: 4-6 Weeks Goal 4:: Patient to demonstrate 50% improve function and with less pain and for ADL Goal Time Frame: 4-6 Weeks Rehabilitation Potential Physical Therapy Diagnosis: This patient has neck pain with DDD with decrease ROM and stiffness and pain impairs ADLS and housework task thus benefit from skilled PT Rehabilitation Potential: Good Anticipated Interventions Patient/Client Instruction: Educate patient on: Condition and Plan of Care For the Purpose of:: To decrease pain, To increase ROM, To improve muscle performance and motor function, To improve ability to perform ADL's, To increase tolerance to activity/condition/p osition, To improve ability of physical actions for home/community/work/ leisure, To improve health of tissue, To decrease soft tissue restriction, To increase flexibility/ROM and To improve tolerance to ADL's Therapeutic Exercise to Include: Strength training, Postural training, Flexibilty training and Active ROM For the Purpose of:: To decrease pain, To increase ROM, To improve muscle performance and motor function, To increase tolerance to activity/condition/p osition, To improve ability of physical actions for home/community/work/ leisure, To improve health of tissue, To decrease soft tissue restriction and To increase flexibility/ROM Manual Therapy Techniques to Include: Mobilization Comment: CERVICAL TRACTION For the Purpose of:: To decrease pain and To increase ROM TENS: Yes IF ES: Yes Cryotherapy (ice pack, ice massage): Yes Thermo therapy (hot pack): Yes Ultrasound (thermal/non thermal): Yes Intermittent cervical traction: Yes For the Purpose of:: To decrease pain and To increase ROM Text: Thank you for the opportun (more content not included)... Normal [facility] Cerv Spine 4 or 5 Viewson Cerv Spine 4 or 5 Views [facility] Imaging Services [facility] [place] [address] Cerv Spine 4 or 5 Views MR#: [id number] Acct: [id number] Name: BRAN DAY Rep #: [id number] : 1950 M 74 From: Lion Juan MD PCP: Dr. Erickson Kimble, DO Status: DEP AMB Study: Cerv Spine 4 or 5 Views Date of Exam: 09/10/24 Exam# [id number] Ordering Dr: Erickson Kimble DO PROCEDURE: CERV SPINE 4 OR 5 VIEWS 09/10/2024 REASON FOR EXAM: NECK PAIN, CHRONIC PAIN TECHNIQUE: 5 views of the cervical spine. AP, lateral, bilateral oblique and open-mouth odontoid COMPARISON: None available FINDINGS: Cervical spine is visualized on the lateral view from the skull base through T1. No fracture. Minimal anterolisthesis C3 on C4. No prevertebral soft tissue swelling. C4-5 severe disc space narrowing with degenerative endplate/uncovertebr al changes, tmsi-uy-vitnujts right and mild appearing left osseous foraminal narrowing C5-6 ssscrjpl-xm-nrcjnt disc space narrowing with degenerative endplate/uncovertebr al changes, kxlu-ai-pyekaxgf right and ctrb-ia-qwjfutmw left appearing osseous foraminal narrowing C6-7 severe disc space narrowing with degenerative endplate/uncovertebr al changes C7-T1 mild disc space narrowing Visualized apices appear clear. RAD/Cerv Spine 4 or 5 Views IMPRESSION: Multilevel spondylosis/discogen ic change as above. Reading Location: [id number] CC: Dr. Erickson Kimble DO Manager Of Broadcast Content: Signed Normal [facility] Internal Medicine Office Vis iton 09-10-2024 Internal Medicine Office Visit [facility] [place] [address] [place] [address] OFFICE VISIT Date of Service: 09/10/24 MR#: [id number] Acct: [id number] Name: BRAN DAY Rep #: [id number] : 1950 Provider: Dr. 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 Facility Required: No Accompanied by: Self Is patient in pain?: No Allergies No Known Allergies Allergy (Verified 09/10/24 10:30) Medications ???Medication ???Instructions ???Recorded ???Confirmed ???Type NK 12/28/23 09/10/24 History Have you fallen in the past year?: No [facility] Medical History Paronychia of great toe of left foot Allergic dermatitis Scoliosis History of broken collarbone Arthritis Acute urticaria Seasonal allergies Generalized osteoarthrosis, unspecified site Surgical History History of tonsillectomy H/O knee surgery Family History Father Anxiety Cancer stomach Grandfather Cancer Mother Hyperlipemia Social History Smoking Status: Never smoker alcohol intake: never substance use type: does not use what type of physical activity do you participate in: walking and weight training frequency: daily HPI HPI Chief Complaint: neck pain Details: BRAN DAY, is a 74 M who presents to the office today for neck pain. He says the neck pain started the day [employer] Narayanan was inaugurated. Pain is in the left side of his neck does not radiate into his arm or into his hands. It is worse at night, but does not really seem to be getting much worse or better since its onset. He has had a carotid Doppler because he had some vision problems and it was normal. The vision problems are no longer present. ROS Const Constitutional: No body ache, excessive sweating, fatigue, fever(s), frequent falls, headache(s), snoring, weakness, weight change, sleep problems or change in appetite Eyes Eyes: No blurry vision, change in vision, eye pain or Light sensitivity ENT ENT: No abnormal hearing, ear or mastoid pain, tinnitus, nasal congestion, headache(s), neck pain or sore throat Resp Respiratory: No cough, shortness of breath, snoring or wheezing Cardio Cardiology: No chest pain at rest, chest pain with exertion, excessive sweating, shortness of breath, dyspnea on exertion, lightheadedness, orthopnea or palpitations Gastro GI: No abdominal pain, change in bowel habits, constipation, cramping, diarrhea, nausea/dyspepsia or vomiting Genitourinary Male: No burning urination, painful urination, urinary incontinence, urinary frequency or blood in urine Musc Musculoskeletal: No abnormal gait, joint pain, back pain, limited range of motion, neck pain, numbness, stiffness, tingling or Arthritis Skin Skin: No dry skin, redness, lesions, itchy eyes, rash or wounds Neuro Neurology: No abnormal gait, abnormal hearing, abnormal speech, dizziness, weakness, frequent falls, headache(s), memory loss, numbness or tingling Psych Psychiatric: No anxiety, No change in appetite, No depression, No memory loss and No Thoughts of harming yourself/Others Endo Endocrine: No cold intolerance, excessive sweating, fatigue, flushing, heat intolerance, increased thirst/drinking, increased hunger or weight change Aller/Imm Allergy/Immunologic: No itchy eyes, seasonal allergy symptoms, hives or wheezing Deandre/Lymp Hematologic/Lymphati c: No easy bleeding, easy bruising or enlarged lymph nodes Exam Const General: cooperative, healthy appearing and no acute distress Nutritional Appearance: average body habitus Orientation: alert and oriented x3 Limitations: mental status not altered [facility] Head: normal to inspection, normocephalic and atraumatic Face and sinus: normal facial exam Eyes General: appearance normal, both eyes and all related structures Neck Neck: normal visual inspection and limited ROM (Some minimal restriction on rotation to the left.) Resp Effort Inspection: normal respiratory effort Auscultation: Bilateral: Clear to Auscultation Cardio Rate: regular rate Rhythm: regular rhythm Musc Cervical Spine: normal cervical lordosis and cerv (more content not included)... Normal [facility] Basophil percentageOrdered B y: Erickson Brown on 02-24-2023 Bilirubin [Mass/Vol] 0.40 mg/dL 0.20-1.00 [facility] Comment on above: For patients on eltr ombopag therapy, use of Dimension Okay TBIL is not recommended. Chloride [Moles/Vol] 109 mmol/L 98-107 [facility] Cholesterol [Mass/Vol] 156 mg/dL <200 [facility] Comment on above: <200 mg/dL Desirable 200-240 mg/dL Borderline >240 mg/dL High Risk Glucose [Mass/Vol] 99 mg/dL 74-106 [facility] Potassium [Moles/Vol] 4.2 mmol/L 3.5-5.1 [facility] Protein [Mass/Vol] 6.6 g/dL 6.4-8.2 [facility] Sodium [Moles/Vol] 141 mmol/L 136-145 [facility] Triglyceride [Mass/Vol] 96 mg/dL <199 [facility] Comment on above: The drugs N-Acetylcy steine and Metamizole may falsely depress this assay.Serum Triglycerides Reference Interval Normal <150 mg/dL Borderline high 150 - 199 mg/dL High 200 - 499 mg/dL Very High > or = 500 mg/dL Laboratory - Chemistry and C hemistry - challengeOrdered By: Erickson Kimble on 02-24-2023 ALP [Catalytic activity/Vol] 67 U/L 45-117 [facility] ALT [Catalytic activity/Vol] 30 U/L 16-61 [facility] CO2 [Moles/Vol] 26.0 mmol/L 21.0-32.0 [facility] Globulin (S) [Mass/Vol] 3.0 g/dL 2.2-4.2 [facility] Urea nitrogen/Creatinine [Mass ratio] 18.4 mg/mg 02-24 [facility] No Panel InformationOrdered By: Erickson Kimble on 02-24-2023 Estimated GFR (MDRD) Amer 97 mL/min >60 [facility] Comment on above: GFR Calc Estimated GFR (MDRD) Non-Af Amer 80 mL/min >60 [facility] Comment on above: Non- GFR Calc Prostate Specific Antigen Screen 1.47 ng/mL 0.00-4.00 [facility] Comment on above: This test was perfor med using the TPSA assay method for the[employer] chemistry system. Values obtained with differentassay methods cannot be used interchangably.When changing PSA assays in the course of monitoring apatient, additional sequential testing should be carriedout to confirm baseline values. Serum or plasma albumin arjun urement (mass/volume)Ordered By: Erickson Kimble on 02-24-2023 Albumin [Mass/Vol] 3.6 g/dL 3.2-5.0 [facility] Serum or plasma albumin/glob ulin mass ratioOrdered By: Erickson Kimble on 02-24-2023 Albumin/Globulin [Mass ratio] 1.2 {ratio} 0.9-2.4 [facility] Serum or plasma calcium arjun urement (mass/volume)Ordered By: Erickson Kimble on 02-24-2023 Calcium [Mass/Vol] 9.8 mg/dL 8.5-10.1 [facility] Serum or plasma cholesterol in HDL measurement (mass/volume)Ordered By: Erickson Kimble on 02-24-2023 Cholesterol in HDL [Mass/Vol] 54 mg/dL >40 [facility] Comment on above: The drugs N-Acetylcy steine and Metamizole may falsely depress this assay. Reference Range HDL <40 mg/dL Low HDL Cholesterol HDL >or= 60 mg/dL High HDL Cholesterol Serum or plasma cholesterol in VLDL measurement (mass/volume)Ordered By: Erickson Kimble on 02-24-2023 Cholesterol in VLDL [Mass/Vol] 19 mg/dL 5-40 [facility] Serum or plasma creatinine m easurement (mass/volume)Ordered By: Erickson Kimble on 02-24-2023 Creatinine [Mass/Vol] 0.98 mg/dL 0.70-1.30 [facility] Comment on above: The validity of the calculated GFR & GFRAA in patients over 70 years has not been determined. Clinical correlation is essential. Serum or plasma low density lipoprotein (LDL) cholesterol measurement (mass/volume)Ordered By: Erickson Kimble on 02-24-2023 Cholesterol in LDL [Mass/Vol] 83 mg/dL 0-130 [facility] Serum or plasma urea nitroge n measurement (mass/volume)Ordered By: Erickson Kimble on 02-24-2023 Urea nitrogen [Mass/Vol] 18 mg/dL 7-18 [facility] Thin prep Papanicolaou smear with manual screeningOrdered By: Erickson Kimble on 02-24-2023 Thin prep Papanicolaou smear with manual screening 20 U/L 15-37 [facility] Thin prep Papanicolaou smear with manual screening 6 5-15 [facility] Absolute lymphocyte countOrd ered By: Reilly Rai on 11-02-2022 Lymphocytes Auto (Unsp spec) [#/Vol] 1.38 10*3/uL 0.83-4.51 [facility] Basophil percentageOrdered B y: Reilly Rai on 11-02-2022 Basophils/100 WBC (Bld) 1.0 % 0-1 [facility] Bilirubin [Mass/Vol] 0.30 mg/dL 0.20-1.00 [facility] Comment on above: For patients on eltr ombopag therapy, use of Dimension Okay TBIL is not recommended. Chloride [Moles/Vol] 108 mmol/L 98-107 [facility] Cholesterol [Mass/Vol] 153 mg/dL <200 [facility] Comment on above: <200 mg/dL Desirable 200-240 mg/dL Borderline >240 mg/dL High Risk Eosinophils/100 WBC (Bld) 5.6 % 0-5 [facility] Glucose [Mass/Vol] 123 mg/dL 74-106 [facility] Comment on above: Fasting Glucose resu lt from 100 to 125 mg/dL suggests IMPAIRED HOMEOSTASIS per A.D.A. criteria. Neutrophils (Bld) [#/Vol] 3.6 10*3/uL 2.0-7.7 [facility] Neutrophils/100 WBC (Bld) 62.2 % 47-70 [facility] Potassium [Moles/Vol] 3.8 mmol/L 3.5-5.1 [facility] Protein [Mass/Vol] 6.5 g/dL 6.4-8.2 [facility] Sodium [Moles/Vol] 140 mmol/L 136-145 [facility] WBC (Bld) [#/Vol] 5.8 10*3/uL 4.4-11.0 [facility] Blood erythrocytes count (nu mber/volume)Ordered By: Reilly Rai on 11-02-2022 RBC (Bld) [#/Vol] 4.87 10*6/uL 4.6-6.2 [facility] Blood hemoglobin measurement (mass/volume)Ordered By: Reilly Rai on 11-02-2022 Hemoglobin (Bld) [Mass/Vol] 14.1 g/dL 13.0-16.5 [facility] Blood lymphocytes/100 leukoc ytesOrdered By: Reilly Rai on 11-02-2022 Lymphocytes/100 WBC (Bld) 24.0 % 19-41 [facility] Blood monocytes/100 leukocyt esOrdered By: Reilly Rai on 11-02-2022 Monocytes/100 WBC (Bld) 6.9 % 0-10 [facility] Blood platelet mean volumeOr dered By: Reilly Rai on 11-02-2022 Platelet mean volume (Bld) [Entitic vol] 9.9 fL 6.2-12.0 [facility] Determination of erythrocyte mean corpuscular volume (MCV)Ordered By: Reilly Rai on 11-02-2022 MCV (RBC) [Entitic vol] 90.8 fL 80-94 [facility] Erythrocyte sedimentation ra teOrdered By: Reilly Rai on 11-02-2022 ESR (Bld) [Velocity] 3 mm/h 0-20 [facility] Hematocrit Auto (Bld) [Volum e fraction]Ordered By: Reilly Rai on 11-02-2022 Hematocrit (Bld) [Volume fraction] 44.2 % 40-54 [facility] Laboratory - Chemistry and C hemistry - challengeOrdered By: Reilly Rai on 11-02-2022 ALP [Catalytic activity/Vol] 73 U/L 45-117 [facility] ALT [Catalytic activity/Vol] 25 U/L 16-61 [facility] CO2 [Moles/Vol] 28.0 mmol/L 21.0-32.0 [facility] Globulin (S) [Mass/Vol] 2.9 g/dL 2.2-4.2 [facility] Urea nitrogen/Creatinine [Mass ratio] 14.7 mg/mg 10-20 [facility] Laboratory - Hematology and Cell countsOrdered By: Reilly Rai on 11-02-2022 Erythrocyte distribution width (RBC) [Entitic vol] 40.9 fL 35.1-43.9 [facility] Erythrocyte distribution width (RBC) [Ratio] 12.4 % 11.6-14.6 [facility] Immature granulocytes/100 WBC (Bld) 0.300 % 0.0-0.9 [facility] Comment on above: IG% - Immature Granu locytes (promyelocytes, myelocytes and metamyelocytes) > 1% indicates that a LEFT SHIFT is Present. MCH (RBC) [Entitic mass] 29.0 pg 27.0-32.0 [facility] Nucleated RBC/100 WBC (Bld) [Ratio] 0 % 0-5 [facility] MCHC Auto (RBC) [Mass/Vol]Or dered By: Reilly Rai on 11-02-2022 MCHC (RBC) [Mass/Vol] 31.9 g/dL 32-36 [facility] No Panel InformationOrdered By: Reilly Rai on 11-02-2022 Anti-Nuclear Antibody Screen Negative Negative [facility] Comment on above: Performed at: [facility] [employer] [address] [id number] Director: Idris Sommer PhD, Phone: [phone] Estimated GFR (MDRD) Amer 92 mL/min >60 [facility] Comment on above: GFR Calc Estimated GFR (MDRD) Non-Af Amer 76 mL/min >60 [facility] Comment on above: Non- GFR Calc Platelets bldOrdered By: Ciera Rai on 11-02-2022 Platelets (Bld) [#/Vol] 214 10*3/uL 150-450 [facility] Serum or plasma C reactive p rotein measurement (mass/volume)Ordered By: Reilly Rai on 11-02-2022 CRP [Mass/Vol] mg/L 0.0-3.0 [facility] Comment on above: C-Reactive Protein ( CRP) provides useful information for thediagnosis, therapy and monitoring of inflammatory processesand associated diseases. For the evaluation of Relative Riskfor Cardiovascular Disease, a High Sensitivity CRP (HSCRP)should be ordered. Serum or plasma albumin arjun urement (mass/volume)Ordered By: Reilly Rai on 11-02-2022 Albumin [Mass/Vol] 3.6 g/dL 3.2-5.0 [facility] Serum or plasma albumin/glob ulin mass ratioOrdered By: eRilly Rai on 11-02-2022 Albumin/Globulin [Mass ratio] 1.2 {ratio} 0.9-2.4 [facility] Serum or plasma calcium arjun urement (mass/volume)Ordered By: Reilly Rai on 11-02-2022 Calcium [Mass/Vol] 9.7 mg/dL 8.5-10.1 [facility] Serum or plasma creatinine m easurement (mass/volume)Ordered By: Reilly Rai on 11-02-2022 Creatinine [Mass/Vol] 1.02 mg/dL 0.70-1.30 [facility] Comment on above: The validity of the calculated GFR & GFRAA in patients over 70 years has not been determined. Clinical correlation is essential. Serum or plasma urea nitroge n measurement (mass/volume)Ordered By: Reilly Rai on 11-02-2022 Urea nitrogen [Mass/Vol] 15 mg/dL 7-18 [facility] Thin prep Papanicolaou smear with manual screeningOrdered By: Reilly Rai on 11-02-2022 Thin prep Papanicolaou smear with manual screening 19 U/L 15-37 [facility] Thin prep Papanicolaou smear with manual screening 4 5-15 [facility] Serum or plasma IgA measurem ent (mass/volume)Ordered By: Dr. Kimble on 08-31-2022 IgA [Mass/Vol] 83 mg/dL 61-437 [facility] Serum or plasma IgG measurem ent (mass/volume)Ordered By: Dr. Kimble on 08-31-2022 IgG [Mass/Vol] 673 mg/dL 603-1613 [facility] Serum or plasma IgM measurem ent (mass/volume)Ordered By: Dr. Kimble on 08-31-2022 IgM [Mass/Vol] 30 mg/dL 15-143 [facility] Comment on above: Performed at: [facility] [employer] [address] Director: Idris Sommer PhD, Phone: [phone] No Panel Informationon 07-08 POC SARS CoV-2 Antigen Positive [facility] Absolute lymphocyte counton 03-08-2022 Lymphocytes Auto (Unsp spec) [#/Vol] 1.54 10*3/uL 0.83-4.51 [facility] Work Phone: Basophil percentageon 2021 Basophils/100 WBC (Bld) 1.3 % 0-1 [facility] Work Phone: Bilirubin [Mass/Vol] 0.40 mg/dL 0.20-1.00 [facility] Work Phone: Comment on above: For patients on eltr ombopag therapy, use of Dimension Okay TBIL is not recommended. Chloride [Moles/Vol] 107 mmol/L 98-107 [facility] Work Phone: Cholesterol [Mass/Vol] 153 mg/dL <200 [facility] Work Phone: Comment on above: <200 mg/dL Desirable 200-240 mg/dL Borderline >240 mg/dL High Risk Eosinophils/100 WBC (Bld) 6.7 % 0-5 [facility] Work Phone: Glucose [Mass/Vol] 99 mg/dL 74-106 [facility] Work Phone: Neutrophils (Bld) [#/Vol] 3.0 10*3/uL 2.0-7.7 [facility] Work Phone: Neutrophils/100 WBC (Bld) 55.1 % 47-70 [facility] Work Phone: Potassium [Moles/Vol] 4.3 mmol/L 3.5-5.1 [facility] Work Phone: Protein [Mass/Vol] 6.7 g/dL 6.4-8.2 [facility] Work Phone: Sodium [Moles/Vol] 140 mmol/L 136-145 [facility] Work Phone: Triglyceride [Mass/Vol] 147 mg/dL <199 [facility] Work Phone: Comment on above: The drugs N-Acetylcy steine and Metamizole may falsely depress this assay.Serum Triglycerides Reference Interval Normal <150 mg/dL Borderline high 150 - 199 mg/dL High 200 - 499 mg/dL Very High > or = 500 mg/dL WBC (Bld) [#/Vol] 5.4 10*3/uL 4.4-11.0 [facility] Work Phone: Blood erythrocytes count (nu mber/volume)on 03-08-2022 RBC (Bld) [#/Vol] 4.87 10*6/uL 4.6-6.2 [facility] Work Phone: Blood hemoglobin measurement (mass/volume)on 03-08-2022 Hemoglobin (Bld) [Mass/Vol] 14.6 g/dL 13.0-16.5 [facility] Work Phone: Blood lymphocytes/100 leukoc yteson 03-08-2022 Lymphocytes/100 WBC (Bld) 28.8 % 19-41 [facility] Work Phone: Blood monocytes/100 leukocyt eson 03-08-2022 Monocytes/100 WBC (Bld) 7.7 % 0-10 [facility] Work Phone: Blood platelet mean volumeon 03-08-2022 Platelet mean volume (Bld) [Entitic vol] 9.8 fL 6.2-12.0 [facility] Work Phone: Determination of erythrocyte mean corpuscular volume (MCV)on 03-08-2022 MCV (RBC) [Entitic vol] 89.1 fL 80-94 [facility] Work Phone: Hematocrit Auto (Bld) [Volum e fraction]on 03-08-2022 Hematocrit (Bld) [Volume fraction] 43.4 % 40-54 [facility] Work Phone: Laboratory - Chemistry and C hemistry - challengeon 03-08-2022 ALP [Catalytic activity/Vol] 71 U/L 45-117 [facility] Work Phone: ALT [Catalytic activity/Vol] 29 U/L 16-61 [facility] Work Phone: CO2 [Moles/Vol] 30.0 mmol/L 21.0-32.0 [facility] Work Phone: Globulin (S) [Mass/Vol] 3.0 g/dL 2.2-4.2 [facility] Work Phone: Urea nitrogen/Creatinine [Mass ratio] 18.8 mg/mg 10-20 [facility] Work Phone: Laboratory - Hematology and Cell countson 03-08-2022 Erythrocyte distribution width (RBC) [Entitic vol] 40.2 fL 35.1-43.9 [facility] Work Phone: Erythrocyte distribution width (RBC) [Ratio] 12.3 % 11.6-14.6 [facility] Work Phone: Immature granulocytes/100 WBC (Bld) 0.400 % 0.0-0.9 [facility] Work Phone: Comment on above: IG% - Immature Granu locytes (promyelocytes, myelocytes and metamyelocytes) > 1% indicates that a LEFT SHIFT is Present. MCH (RBC) [Entitic mass] 30.0 pg 27.0-32.0 [facility] Work Phone: Nucleated RBC/100 WBC (Bld) [Ratio] 0 % 0-5 [facility] Work Phone: MCHC Auto (RBC) [Mass/Vol]on 03-08-2022 MCHC (RBC) [Mass/Vol] 33.6 g/dL 32-36 [facility] Work Phone: No Panel Informationon 03-08 Estimated GFR (MDRD) Amer 93 mL/min >60 [facility] Work Phone: Comment on above: GFR Calc Estimated GFR (MDRD) Non-Af Amer 77 mL/min >60 [facility] Work Phone: Comment on above: Non- GFR Calc Platelets bldon 03-08-2022 Platelets (Bld) [#/Vol] 216 10*3/uL 150-450 [facility] Work Phone: Serum or plasma albumin arjun urement (mass/volume)on 03-08-2022 Albumin [Mass/Vol] 3.7 g/dL 3.2-5.0 [facility] Work Phone: Serum or plasma albumin/glob ulin mass ratioon 03-08-2022 Albumin/Globulin [Mass ratio] 1.2 {ratio} 0.9-2.4 [facility] Work Phone: Serum or plasma calcium arjun urement (mass/volume)on 03-08-2022 Calcium [Mass/Vol] 9.8 mg/dL 8.5-10.1 [facility] Work Phone: Serum or plasma cholesterol in HDL measurement (mass/volume)on 03-08-2022 Cholesterol in HDL [Mass/Vol] 52 mg/dL >40 [facility] Work Phone: Comment on above: The drugs N-Acetylcy steine and Metamizole may falsely depress this assay. Reference Range HDL <40 mg/dL Low HDL Cholesterol HDL >or= 60 mg/dL High HDL Cholesterol Serum or plasma cholesterol in VLDL measurement (mass/volume)on 03-08-2022 Cholesterol in VLDL [Mass/Vol] 29 mg/dL 5-40 [facility] Work Phone: Serum or plasma creatinine m easurement (mass/volume)on 03-08-2022 Creatinine [Mass/Vol] 1.01 mg/dL 0.70-1.30 [facility] Work Phone: Comment on above: The validity of the calculated GFR & GFRAA in patients over 70 years has not been determined. Clinical correlation is essential. Serum or plasma low density lipoprotein (LDL) cholesterol measurement (mass/volume)on 03-08-2022 Cholesterol in LDL [Mass/Vol] 72 mg/dL 0-130 [facility] Work Phone: Serum or plasma urea nitroge n measurement (mass/volume)on 03-08-2022 Urea nitrogen [Mass/Vol] 19 mg/dL 7-18 [facility] Work Phone: Thin prep Papanicolaou smear with manual screeningon 03-08-2022 Thin prep Papanicolaou smear with manual screening 16 U/L 15-37 [facility] Work Phone: Thin prep Papanicolaou smear with manual screening 3 5-15 [facility] Work Phone: .GFRon 03-11-2019 GFR Non- 87 ml/min/1.73sqm Normal [facility] ([place]) Comment on above: Result Comment: GFR Population mean for , Non- Americans Ages 20-29 = 116 mL/min/1.73 sq.m. Ages 30-39 = 107 mL/min/1.73 sq.m. Ages 40-49 = 99 mL/min/1.73 sq.m. Ages 50-59 = 93 mL/min/1.73 sq.m. Ages 60-69 = 85 mL/min/1.73 sq.m. Ages 70+ = 75 mL/min/1.73 sq.m. Chronic Kidney Disease: Less than 60 mL/min/1.73 square meters End Stage Renal Disease: Less than 15 mL/min/1.73 square meters Performed By: #### P SA, LIPID, CMP, GFR #### [address] [address] GFR 105 ml/min/1.73sqm Normal [facility] ([place]) Comment on above: Result Comment: GFR Population mean for , Non- Americans Ages 20-29 = 116 mL/min/1.73 sq.m. Ages 30-39 = 107 mL/min/1.73 sq.m. Ages 40-49 = 99 mL/min/1.73 sq.m. Ages 50-59 = 93 mL/min/1.73 sq.m. Ages 60-69 = 85 mL/min/1.73 sq.m. Ages 70+ = 75 mL/min/1.73 sq.m. Chronic Kidney Disease: Less than 60 mL/min/1.73 square meters End Stage Renal Disease: Less than 15 mL/min/1.73 square meters Performed By: #### P SA, LIPID, CMP, GFR #### [address] [address] CMPon 03-11-2019 Albumin [Mass/Vol] 4.1 G/dL Normal 3.4-4.8 [facility] ([place]) Comment on above: Performed By: #### P SA, LIPID, CMP, GFR #### [address] [address] Albumin/Globulin [Mass ratio] 1.5 {ratio} Normal 1.1-2.5 [facility] ([place]) Comment on above: Performed By: #### P SA, LIPID, CMP, GFR #### [address] [address] ALP [Catalytic activity/Vol] 85 U/L Normal 40-135 [facility] ([place]) Comment on above: Performed By: #### P SA, LIPID, CMP, GFR #### [address] [address] ALT [Catalytic activity/Vol] 35 U/L Normal 10-35 [facility] ([place]) Comment on above: Performed By: #### P SA, LIPID, CMP, GFR #### [address] [address] AST [Catalytic activity/Vol] 19 U/L Normal 10-40 [facility] ([place]) Comment on above: Performed By: #### P SA, LIPID, CMP, GFR #### [address] [address] Bili Total 0.4 mg/dL Normal 0.2-1.0 [facility] ([place]) Comment on above: Performed By: #### P SA, LIPID, CMP, GFR #### [address] [address] Calcium [Mass/Vol] 10.1 mg/dL Normal 8.4-10.2 [facility] ([place]) Comment on above: Performed By: #### P SA, LIPID, CMP, GFR #### [address] [address] Chloride [Moles/Vol] 106 mmol/L Normal 98-107 [facility] ([place]) Comment on above: Performed By: #### P SA, LIPID, CMP, GFR #### [address] [address] CO2 [Moles/Vol] 30 mmol/L Normal 23-31 [facility] ([place]) Comment on above: Performed By: #### P SA, LIPID, CMP, GFR #### [address] [address] Creatinine [Mass/Vol] 0.87 mg/dL Normal 0.70-1.30 [facility] ([place]) Comment on above: Performed By: #### P SA, LIPID, CMP, GFR #### [address] [address] Electrolyte Balance 6.0 mEq/L Normal [facility] ([place]) Comment on above: Performed By: #### P SA, LIPID, CMP, GFR #### [address] [address] Globulin (S) [Mass/Vol] 2.7 G/dL Normal [facility] ([place]) Comment on above: Performed By: #### P SA, LIPID, CMP, GFR #### [address] [address] Glucose [Mass/Vol] 88 mg/dL Normal 80-115 [facility] ([place]) Comment on above: Performed By: #### P SA, LIPID, CMP, GFR #### [address] [address] Potassium [Moles/Vol] 4.9 mmol/L Normal 3.5-5.1 [facility] ([place]) Comment on above: Performed By: #### P SA, LIPID, CMP, GFR #### [address] [address] Protein [Mass/Vol] 6.8 G/dL Normal 6.4-8.2 [facility] ([place]) Comment on above: Performed By: #### P SA, LIPID, CMP, GFR #### [address] [address] Sodium [Moles/Vol] 142 mmol/L Normal 136-145 [facility] ([place]) Comment on above: Performed By: #### P SA, LIPID, CMP, GFR #### [address] [address] Urea nitrogen [Mass/Vol] 15 mg/dL Normal 7-18 [facility] ([place]) Comment on above: Performed By: #### P SA, LIPID, CMP, GFR #### [address] [address] Urea nitrogen/Creatinine [Mass ratio] 17 ratio Normal 7-27 [facility] ([place]) Comment on above: Performed By: #### P SA, LIPID, CMP, GFR #### [address] [address] LIPIDon 03-11-2019 Cholesterol [Mass/Vol] 153 mg/dL Normal 0-200 [facility] ([place]) Comment on above: Result Comment: Chol esterol Reference Interval: Less than 200 Desirable 200-239 Borderline high risk 240 and above High risk Performed By: #### P SA, LIPID, CMP, GFR #### [facility] [address] [place] [address] Cholesterol in HDL [Mass/Vol] 51 mg/dL Normal 40-60 [facility] ([place]) Comment on above: Performed By: #### P SA, LIPID, CMP, GFR #### [facility] [address] [place] [address] Cholesterol in LDL [Mass/Vol] 86 mg/dL Normal 0-130 [facility] ([place]) Comment on above: Performed By: #### P SA, LIPID, CMP, GFR #### [address] [address] Triglyceride [Mass/Vol] 80 mg/dL Normal 0-150 [facility] ([place]) Comment on above: Result Comment: Trig lyceride Reference Interval: Less than 150 Normal 150-199 Borderline high risk 200-499 High risk 500 or higher Very high risk Performed By: #### P SA, LIPID, CMP, GFR #### [address] [address] PSAon 03-11-2019 Prostate Specific Antigen 1.26 ng/mL Normal 0.00-4.00 [facility] ([place]) Comment on above: Performed By: #### P SA, LIPID, CMP, GFR #### [address] [address] Vital Signs Date Time Vital Sign Value Performing Clinician Donaldoi twany 11-05-2024 10:03-0400 Body height 185.[address] Erickson Kimble DO Work Phone: [facility] 11-05-2024 10:03-0400 Body mass index (BMI) [Ratio] 22 kg/m2 Dr. Erickson Kimble DO Work Phone: [facility] 11-05-2024 10:03-0400 Body temperature 98.4 [degF] Dr. Erickson Kimble DO Work Phone: [facility] 11-05-2024 10:03-0400 Body weight 75.[address] Erickson Kimble DO Work Phone: [facility] 11-05-2024 10:03-0400 Diastolic blood pressure 64 mm[Hg] Dr. Erickson Kimble DO Work Phone: [facility] 11-05-2024 10:03-0400 Heart rate 64 /min Dr. Erickson Kimble DO Work Phone: [facility] 11-05-2024 10:03-0400 Respiratory rate 16 /min Dr. Erickson Kimble DO Work Phone: [facility] 11-05-2024 10:03-0400 SaO2% (BldA) [Mass fraction] 96 % Dr. Erickson Kimble DO Work Phone: [facility] 11-05-2024 10:03-0400 Systolic blood pressure 118 mm[Hg] Dr. Erickson Kimble DO Work Phone: [facility] 09-10-2024 10:32-0400 Body mass index (BMI) [Ratio] 22.1 kg/m2 Dr. Erickson Kimble DO Work Phone: [facility] 09-10-2024 10:32-0400 Body temperature 97 [degF] Dr. Erickson Kimble DO Work Phone: [facility] 09-10-2024 10:32-0400 Body weight 76.[address] Erickson Kimble DO Work Phone: [facility] 09-10-2024 10:32-0400 Diastolic blood pressure 62 mm[Hg] Dr. Erickson Kimble DO Work Phone: [facility] 09-10-2024 10:32-0400 Heart rate 76 /min Dr. Erickson Kimble DO Work Phone: [facility] 09-10-2024 10:32-0400 Respiratory rate 16 /min Dr. Erickson Kimble DO Work Phone: [facility] 09-10-2024 10:32-0400 SaO2% (BldA) [Mass fraction] 99 % Dr. Erickson Kimble DO Work Phone: [facility] 09-10-2024 10:32-0400 Systolic blood pressure 122 mm[Hg] Dr. Erickson Kimble DO Work Phone: [facility] 05-30-2023 08:57-0500 Body height 185.[address] Erickson Kimble Work Phone: [facility] 05-30-2023 08:57-0500 Body mass index (BMI) [Ratio] 22.1 kg/m2 Dr. Erickson Kimble Work Phone: [facility] 05-30-2023 08:57-0500 Body temperature 97.6 [degF] Dr. Erickson Kimble Work Phone: [facility] 05-30-2023 08:57-0500 Body weight 76.[address] Erickson Kimble Work Phone: [facility] 05-30-2023 08:57-0500 Diastolic blood pressure 62 mm[Hg] Dr. Erickson Kimble Work Phone: [facility] 05-30-2023 08:57-0500 Heart rate 69 /min Dr. Erickson Kimble Work Phone: [facility] 05-30-2023 08:57-0500 Respiratory rate 16 /min Dr. Erickson Kimble Work Phone: [facility] 05-30-2023 08:57-0500 SaO2% (BldA) [Mass fraction] 97 % Dr. Erickson Kimble Work Phone: [facility] 05-30-2023 08:57-0500 Systolic blood pressure 118 mm[Hg] Dr. Erickson Kimble Work Phone: [facility] 01-03-2023 09:33-0400 Body height 185.[address] Erickson Kimble Work Phone: [facility] 01-03-2023 09:33-0400 Body mass index (BMI) [Ratio] 22.3 kg/m2 Dr. Erickson Kimble Work Phone: [facility] 01-03-2023 09:33-0400 Body temperature 97.8 [degF] Dr. Erickson Kimble Work Phone: [facility] 01-03-2023 09:33-0400 Body weight 76.[address] Erickson Kimble Work Phone: [facility] 01-03-2023 09:33-0400 Diastolic blood pressure 66 mm[Hg] Dr. Erickson Kimble Work Phone: [facility] 01-03-2023 09:33-0400 Heart rate 64 /min Dr. Erickson Kimble Work Phone: [facility] 01-03-2023 09:33-0400 Respiratory rate 16 /min Dr. Erickson Kimble Work Phone: [facility] 01-03-2023 09:33-0400 SaO2% (BldA) [Mass fraction] 94 % Dr. Erickson Kimble Work Phone: [facility] 01-03-2023 09:33-0400 Systolic blood pressure 104 mm[Hg] Dr. Erickson Kimble Work Phone: [facility] 12-05-2022 16:15-0400 Body mass index (BMI) [Ratio] 21.6 kg/m2 Dr. Erickson Kimble Work Phone: [facility] 12-05-2022 16:15-0400 Body temperature 98.2 [degF] Dr. Erickson Kimble Work Phone: [facility] 12-05-2022 16:15-0400 Body weight 74.[address] Erickson Kimble Work Phone: [facility] 12-05-2022 16:15-0400 Diastolic blood pressure 76 mm[Hg] Dr. Erickson Kimble Work Phone: [facility] 12-05-2022 16:15-0400 Heart rate 71 /min Dr. Erickson Kimble Work Phone: [facility] 12-05-2022 16:15-0400 Respiratory rate 16 /min Dr. Erickson Kimble Work Phone: [facility] 12-05-2022 16:15-0400 SaO2% (BldA) [Mass fraction] 97 % Dr. Erickson Kimble Work Phone: [facility] 12-05-2022 16:15-0400 Systolic blood pressure 128 mm[Hg] Dr. Erickson Kimble Work Phone: [facility] 08-31-2022 11:33-0400 Body height 185.[address] Erickson Kimble Work Phone: [facility] 08-31-2022 11:33-0400 Body mass index (BMI) [Ratio] 22.6 kg/m2 Dr. Erickson Kimble Work Phone: [facility] 08-31-2022 11:33-0400 Body temperature 96 [degF] Dr. Erickson Kimble Work Phone: [facility] 08-31-2022 11:33-0400 Body weight 77.[address] Erickson Kimble Work Phone: [facility] 08-31-2022 11:33-0400 Diastolic blood pressure 84 mm[Hg] Dr. Erickson Kimble Work Phone: [facility] 08-31-2022 11:33-0400 Heart rate 95 /min Dr. Erickson Kimble Work Phone: [facility] 08-31-2022 11:33-0400 Respiratory rate 18 /min Dr. Erickson Kimble Work Phone: [facility] 08-31-2022 11:33-0400 SaO2% (BldA) [Mass fraction] 99 % Dr. Erickson Kimble Work Phone: [facility] 08-31-2022 11:33-0400 Systolic blood pressure 136 mm[Hg] Dr. Erickson Kimble Work Phone: [facility] 08-03-2022 13:17-0400 Body temperature 98.1 [degF] Dr. Erickson Kimble Work Phone: [facility] 08-03-2022 13:17-0400 Diastolic blood pressure 70 mm[Hg] Dr. Erickson Kimble Work Phone: [facility] 08-03-2022 13:17-0400 Heart rate 72 /min Dr. Erickson Kimble Work Phone: [facility] 08-03-2022 13:17-0400 Respiratory rate 14 /min Dr. Erickson Kimble Work Phone: [facility] 08-03-2022 13:17-0400 Systolic blood pressure 118 mm[Hg] Dr. Erickson Kimble Work Phone: [facility] 07-22-2022 11:41-0400 Body temperature 98.9 [degF] Dr. Erickson Kimble Work Phone: [facility] 07-22-2022 11:41-0400 Diastolic blood pressure 76 mm[Hg] Dr. Erickson Kimble Work Phone: [facility] 07-22-2022 11:41-0400 Heart rate 82 /min Dr. Erickson Kimble Work Phone: [facility] 07-22-2022 11:41-0400 Respiratory rate 18 /min Dr. Erickson Kimble Work Phone: [facility] 07-22-2022 11:41-0400 SaO2% (BldA) [Mass fraction] 97 % Dr. Erickson Kimble Work Phone: [facility] 07-22-2022 11:41-0400 Systolic blood pressure 126 mm[Hg] Dr. Erickson Kimble Work Phone: [facility] 07-18-2022 12:34-0400 Body temperature 99 [degF] Dr. Erickson Kimble Work Phone: [facility] 07-18-2022 12:34-0400 Diastolic blood pressure 70 mm[Hg] Dr. Erickson Kimble Work Phone: [facility] 07-18-2022 12:34-0400 Heart rate 70 /min Dr. Erickson Kimble Work Phone: [facility] 07-18-2022 12:34-0400 Respiratory rate 16 /min Dr. Erickson Kimble Work Phone: [facility] 07-18-2022 12:34-0400 SaO2% (BldA) [Mass fraction] 99 % Dr. Erickson Kimble Work Phone: [facility] 07-18-2022 12:34-0400 Systolic blood pressure 136 mm[Hg] Dr. Erickson Kimble Work Phone: [facility] 07-08-2022 13:19-0500 Body mass index (BMI) [Ratio] 22.8 kg/m2 Dr. Erickson Kimble Work Phone: [facility] 07-08-2022 13:19-0500 Body temperature 98.1 [degF] Dr. Erickson Kimble Work Phone: [facility] 07-08-2022 13:19-0500 Body weight 78.[address] Erickson Kimble Work Phone: [facility] 07-08-2022 13:19-0500 Diastolic blood pressure 70 mm[Hg] Dr. Erickson Kimble Work Phone: [facility] 07-08-2022 13:19-0500 Heart rate 91 /min Dr. Erickson Kimble Work Phone: [facility] 07-08-2022 13:19-0500 Respiratory rate 15 /min Dr. Erickson Kimble Work Phone: [facility] 07-08-2022 13:19-0500 SaO2% (BldA) [Mass fraction] 95 % Dr. Erickson Kimble Work Phone: [facility] 07-08-2022 13:19-0500 Systolic blood pressure 120 mm[Hg] Dr. Erickson Kimble Work Phone: [facility] 03-08-2022 10:02-0400 Body height 190.[address] Erickson Kimble Work Phone: [facility] Work Phone: 03-08-2022 10:02-0400 Body mass index (BMI) [Ratio] 21.2 kg/m2 Dr. Erickson Kimble Work Phone: [facility] Work Phone: 03-08-2022 10:02-0400 Body temperature 97.1 [degF] Dr. Erickson Kimble Work Phone: [facility] Work Phone: 03-08-2022 10:02-0400 Body weight 77.[address] Erickson Kimble Work Phone: [facility] Work Phone: 03-08-2022 10:02-0400 Diastolic blood pressure 68 mm[Hg] Dr. Erickson Kimble Work Phone: [facility] Work Phone: 03-08-2022 10:02-0400 Heart rate 77 /min Dr. Erickson Kimble Work Phone: [facility] Work Phone: 03-08-2022 10:02-0400 Respiratory rate 16 /min Dr. Erickson Kimble Work Phone: [facility] Work Phone: 03-08-2022 10:02-0400 SaO2% (BldA) [Mass fraction] 97 % Dr. Erickson Kimble Work Phone: [facility] Work Phone: 03-08-2022 10:02-0400 Systolic blood pressure 112 mm[Hg] Dr. Erickson Kimble Work Phone: [facility] Work Phone: Encounters Encounter Date Encounter Type Care Provider Facility Start: 03-21-2025 ambulatory Erickson Kimble Facilit y:[facility] Start: 03-12-2025 Encounter for genera l adult medical examination without abnormal findings Erickson Kimble [facility] Start: 03-12-2025 End: 03-12-2025 ambulatory Erickson Kimble Facility:[facility] Start: 12-16-2024 End: 12-16-[address] Erickson Kimble DO Work Phone: -Physical Therapy Start: 12-16-2024 End: 12-16-[address] Erickson Vidal DO -Physical Therapy Work Phone: Start: 11-05-2024 End: 11-05-[address] Erickson Vidal DO -[facility] Work Phone: Start: 11-05-2024 End: 11-05-[address] Erickson Kimble DO Work Phone: -[facility] Start: 11-04-[address] Jayla Vidal DO -Physical Therapy Work Phone: Start: 09-10-2024 End: 09-10-[address] Philip Elise MD -[facility] Start: 09-10-2024 End: 09-10-2024 ambulatory Erickson Kimble [facility] Start: 08-16-2024 End: 08-16-2024 ambulatory VICTORINO WILKERSON MD Facility:[facility] Start: 08-15-2023 End: 08-15-[address] Erickson Kimble Work Phone: [facility] Work Phone: Start: 08-15-2023 End: 08-15-[address] Erickson Kimble Work Phone: [facility]-Physical Therapy Work Phone: Start: 05-30-2023 End: 05-30-[address] Erickson Kimble Work Phone: [facility] Work Phone: Start: 02-24-2023 End: 02-24-[address] Erickson Kimble Work Phone: [facility] Work Phone: Start: 02-24-2023 End: 02-24-[address] Erickson Kimble Work Phone: [facility] [place] Start: 01-03-2023 End: 01-03-[address] Erickson Kimble Work Phone: [facility] Internal Medicine Work Phone: Start: 12-05-2022 End: 12-05-[address] Erickson Kimble Work Phone: [facility] Work Phone: Start: 11-02-2022 End: 11-02-[address] Erickson Kimble Work Phone: [facility] Work Phone: Start: 11-02-2022 End: 11-02-[address] Erickson Kimble Work Phone: [facility] [place] Start: 08-31-2022 End: 08-31-[address] Erickson Kimble Work Phone: [facility] Work Phone: Start: 08-31-2022 End: 08-31-[address] Erickson Kimble Work Phone: [facility] Internal Medicine Start: 08-03-2022 End: 08-03-[address] Erickson Kimble Work Phone: [facility] Start: 07-22-2022 End: 07-22-[address] Erickson Kimble Work Phone: [facility] Start: 07-18-2022 End: 07-18-[address] Erickson Kimble Work Phone: [facility] Start: 07-08-2022 End: 07-08-[address] Erickson Kimble Work Phone: [facility] Start: 03-08-2022 End: 03-08-[address] Erickson Kimble Work Phone: [facility] Work Phone: Start: 03-08-2022 End: 03-08-[address] Erickson Kimble Work Phone: [facility] Internal [facility] Start: 02-28-2022 End: 02-28-[address] Erickson Kimble Work Phone: [facility] Internal Medicine Start: 12-24-2021 End: 12-24-[address] Erickson Kimble Work Phone: [facility] Start: 03-12-[address] Erickson Kimble Work Phone: [facility] Procedures Date Procedure Procedure Detail Performing Clinician Start: 09-10-2024 X-ray of cervical spine Dr. Erickson Kimble DO Work Phone: Immunizations Immunization Date Immunization Notes Care Provider Fa [facility] 03-09-2023 pneumococcal polysaccharide vaccine, [address] Erickson Kimble Work Phone: [facility] 02-28-2022 influenza, injectabl e, quadrivalent, preservative free Dr. Erickson Kimble Work Phone: [facility] 02-28-2022 influenza, seasonal, injectable Dr. Erickson Kimble Work Phone: [facility] 12-24-2021 tetanus toxoid, redu giuseppe diphtheria toxoid, and acellular pertussis vaccine, adsorbed Dr. Erickson Kimble Work Phone: [facility] 01-30-2020 influenza, injectabl e, quadrivalent, preservative free Dr. Erickson Kimble Work Phone: [facility] 01-30-2020 influenza, seasonal, injectable Dr. Erickson Kimble Work Phone: [facility] Payers Date Payer Category Payer Self-pay [id number] 2024 Unknown [id number] 2014 Medicare [id number] 2011 Unknown [id number] 1950 Unknown [id number] 2.16.8 [id number] Unknown [id number] 2.16.8 [id number] Unknown [id number] 2.16.8 [id number] Unknown [id number] 2.16.8 [id number] Unknown [id number] 2.16.8 [id number] Unknown [id number] 2.16.8 [id number] Unknown [id number] 2.16.8 [id number] Unknown [id number] 2.16.8 [id number] Social History Date Type Detail Facility Start: 03-08-2022 End: 05-30-2023 Tobacco smoking status NHIS Unknown if ever smoked [facility] Start: 1950 Sex Assigned At Male W [facility] Start: 09-19-2024 Tobacco smoking stat us NHIS Never smoked tobacco (finding) [facility] Clinical Notes 06-12-2023 to 12-16-2024 Note Date & Type Note Facility 12-16-2024 Discharge summary [facility] 12-16-2024 Discharge summary Note Date/Time December 16, 2024 12:32pm [facility] Physical Therapy [address] [place] [address] / REHABILITATION SERVICES DISCHARGE SUMMARY MR#: [id number] Acct: [id number] Name: BRAN DAY Rep #: [id number] : 1950 74 From: Cert. BILLIE MastersT, OCS Referring Dr.: Dr. Erickson Kimble DO Status: REG RCR Insurance: MEDICARE PART A B [facility] Discharge Summary D/C summary: It has been my pleasure to treat BRAN DAY referred by Dr. Erickson Kimble DO, with the diagnosis of CERVICALGIA for a total of 17 visit(s). Discharge Date: 12/16/24 Please see the following information for a summary of their discharge status. Subjective Subjective: Pain better band stretches help and neck stretches -pain can wake patient throughout night -Patient able to do most ADLS around home -Denies paresthesia/tinglig Pain Bilateral Neck: Pain Intensity (Out of 10): 0 Overall Improvement % Improvement: 50 Objective Objective/Function: OSTURE: mild forward posture PALAPTION: unremarkable NEURO: denies paresthesia/tingling ,reflexes C5-6-7 2/3 AROM: BUE WFL MMT: grossly 4/5 CERVICAL ROM: flexion min loss ,rotation min loss ,lateral flexion min/MOD RIGHT,left min ,rotation min loss ,retraction MIN ,EXTENSION WFL C/S Radiculapathy - Left Upper limb tension test: Negative C/S Radiculapathy - Right Upper limb tension test: Negative C/S Radiculapathy - Left Spurlings: Negative C/S Radiculapathy - Right Spurlings: Negative C/S Radiculapathy - Left Cervical distraction: Negative C/S Radiculapathy - Right Cervical distraction: Negative C/S Radiculapathy - Left Relief test: Negative C/S Radiculapathy - Right Relief test: Negative Sharp Lacho: Negative Vertebral Artery Test: Negative Goals Goal 1:: Patient to be I with HEP for neck Goal Progress: Progressing Goal 2:: Patient to improve cervical ROM for function of recovery for driving Goal Progress: Progressing Goal 3:: Patient to improve neck oswestry score by 5 points to improve QOL Goal Progress: Progressing Goal 4:: Patient to demonstrate 50% improve function and with less pain and forADL Goal Progress: Progressing Plan Plan: D/C TO D/C Information Discharge Comments: hep d/c sentence: If there are questions or concerns regarding this patient's physical therapy, please feel free to call me at [phone]. Thank you for the referral of thispatient. Sincerely, Luis Alonzo PT, Cert T, OCS Balance/Gait/Functional tests Balance/Special Test Scores Oswestry Neck Score: 2 Improvement % Improvement: 50 <Electronically signed by Landon Levine PT. SHARONA, OCS> 12/16/24 1232 CC: Dr. Erickson Kimble, DO ~ JLA Signed [facility] Work Phone: 1(712) 873-577305-06-2025 Evaluation note* Diagnosis Onset Date Resolution Status Admit Date Neck pain acute September 10, 2024 10:29am Neck pain acute November 05, 2024 9:55am [facility] Work Phone: [phone]) 838-663605-06-2025 Evaluation note* Diagnosis Onset Date Resolution Status Admit Date Neck pain chronic September 10, 2024 10:29am Neck pain chronic November 05, 2024 9:55am [facility] Work Phone: 1(831) 711-212804-11-2024 Discharge summary Author Luis Alonzo [facility] August 17, 2023 11:29am Note Date/Time August 15, 2023 9:58 am [facility] Physical Therapy [facility] [address] [place] [address] [address] [place] [address] / REHABILITATION SERVICES DISCHARGE SUMMARY MR#: [id number] Acct: [id number] Name: BRAN DAY Rep #: [id number] : 1950 73 From: Cert. SHARONA Masters, OCS Referring Dr.: Dr. Erickson Kimble, DO Status: REG RCR Insurance: MEDICARE PART A B [facility] Discharge Summary D/C summary: It has been my pleasure to treat BRAN DAY referred by Dr. Erickson Kimble DO, with the diagnosis of LOW BACK PAIN ,PAIN IN LEG ,SACROOCCYGEAL DISORDER for a total of 23 visit(s). Discharge Date: 08/15/23 Please see the following information for a summary of their discharge status. Subjective Subjective: Doing okay back doing better Pain Bilateral Back: Pain Intensity (Out of 10): 0 Bilateral Lower Extremity: Pain Intensity (Out of 10): 0 Right Knee: Pain Intensity (Out of 10): 0 Overall Improvement % Improvement: 50 Objective Objective/Function: GAIT: reciprocal pattern STMMTRICAL : align FLAXABLITY: hamstrings mod tight MMT: Quads/hams 4/5 ,hip flexion right 66.5 , ,left 57.2 ,hip abduction ( peak force) 30.1 left 28.7 right LUMBAR ROM: flexion mod loss, extension min loss ,side glides min loss Goals Goal 1:: Patient to be I with HEP for back Goal Progress: Goal Met Goal 2:: Patient to improve lumbar ROM for function of recovery to tied shoes Goal Progress: Goal Met Goal 3:: Patient to demonstrate 60% improvement with decrease pain and improve function( New goal) Goal Progress: Goal Met Goal 4:: Patient to improve back oswestry score by 5 points to improve QOL and function Goal Progress: Goal Met Goal 5:: Patient to improve peak force hip abductors by 5-10# strength to improve gait with decrease pain( NEW GOAL FOR HIP ABD) * HIP FLEXION GOAL MET* Goal Progress: Goal Met Plan Plan: d/c to HEP and Gym program D/C Information d/c sentence: If there are questions or concerns regarding this patient's physical therapy, please feel free to call me at [phone]. Thank you for the referral of thispatient. Sincerely, Luis Alonzo PT, Cert MDT, OCS Balance/Gait/Functional tests Balance/Special Test Scores Oswestry Low Back Score: 7 Improvement % Improvement: 50 <Electronically signed by Landon Levine PT. SHARONA, NILESH> 08/17/23 1129 CC: Dr. Erickson Kimble DO ~ JLA Signed [facility] Work Phone: 1(280) 388-947202-05-2024 Discharge summary [facility] June 12, 2023 6:45pm Note Date/Time June 12, 2023 6 :45pm [facility] Physical Therapy [facility] [address] [place] [address] [address] [place] [address] / REHABILITATION SERVICES DISCHARGE SUMMARY MR#: [id number] Acct: [id number] Name: BRAN DAY Rep #: [id number] : 1950 72 From: Cert. SHARONA Masters, OCS Referring Dr.: Dr. Erickson Kimble, DO Status: REG RCR Insurance: MEDICARE PART A B [facility] <Electronically signed by Cert. SHARONA Levine PT, OCS> 06/12/231844 CC: Dr. Erickson Kimble, DO ~ JLA Signed [facility] Work Phone: 1(312) 611-574102-05-2024 Discharge summary Author [facility] June 12, 2023 6:45pm Note Date/Time June 12, 2023 6 :45pm [facility] Physical Therapy [facility] [address] [place] [address] [address] [place] [address] / REHABILITATION SERVICES DISCHARGE SUMMARY MR#: [id number] Acct: [id number] Name: BRAN DAY Rep #: [id number] : 1950 72 From: Cert. SHARONA Masters, OCS Referring Dr.: Dr. Erickson Kimble, DO Status: REG RCR Insurance: MEDICARE PART A B [facility] <Electronically signed by Cert. SHARONA Levine PT, OCS> 06/12/231844 CC: Dr. Erickson Kimble, DO ~ JLA Signed [facility] Work Phone: Evaluation note* Diagnosis Onset Date Resolution Status Disorder of left sural nerve acute Low back pain radiating to left leg acute Seasonal allergies chronic [facility] Work Phone: Evaluation note* Diagnosis Onset Date Resolution Status COVID-19 acute Acute bronchitis acute Strain of right Achilles tendon acute Allergic dermatitis acute Rash noneactive [id number] acute [facility] Work Phone: Evaluation note* Diagnosis Onset Date Resolution Status Acute bronchitis acute Strain of right Achilles tendon acute Allergic dermatitis acute Rash noneactive [id number] acute [facility] Work Phone: Evaluation note* Diagnosis Onset Date Resolution Status Sinusitis chronic, frontal c hronic Pain of right lower extremity noneactive [facility] Work Phone: Evaluation note* Diagnosis Onset Date Resolution Status Synovial cyst of popliteal space [Monteiro], right knee acute Toenail bruise acute [facility] Work Phone: Reason for referral (narrative)No reason for referral information [facility] Work Phone: Summary Purpose Family History No Family History Records Found Relationship Condition Age at Onset Recorded Date/T tyrese father Anxiety Unknown Malignant neoplasm Unknown grandfather Malignant neoplasm Unknown mother Hyperlipidemia Unknown Advance Directives No Advanced Directives Records FoundNo Advanced Directives Records FoundNo Advanced Directives Records Found Chief Complaint and Reason for Visit Chief Complaint TETNUS SHOT FLU SHOT YEARLY CHK UP Reason for Visit Disorder of left beata al nerve Low back pain radiating to left leg Seasonal allergies Chief Complaint POSITIVE COVID HOME COUGH/CONGESTION RT ANKLE TENDON PAIN Rash chk up Reason for Visit COVID-19 Acute bronchitis Strain of right Achilles tendon Allergic dermatitis Rash [id number] Chief Complaint COUGH/CONGESTION RT ANKLE TENDON PAIN Rash chk up Reason for Visit Acute bronchitis Strain of right Achilles tendon Allergic dermatitis Rash [id number] Chief Complaint SINUS PRESSURE EYE CONCERNS Reason for Visit Sinusitis chronic, f rontal Pain of right lower extremity Chief Complaint 2 M FU LOW BACK AND L LEG RX HERE REQUESTS ROCÍO Reason for Visit Synovial cyst of pop liteal space [[place]], right knee Toenail bruise Chief Complaint Admit Date neck pain and stiffness/neuro questions September 10, 2024 10:29am XRAY September 10, 2024 11:12a m NECK PAIN. RX HERE November 04, 2024 9:00 am FU NECK ISSUES November 05, 2024 9:55a m Reason for Visit Admit Date Neck pain September 10, 2024 10:29a m Neck pain November 05, 2024 9:55a m Chief Complaint Admit Date neck pain and stiffness/neuro questions September 10, 2024 10:29am XRAY September 10, 2024 11:12a m FU NECK ISSUES November 05, 2024 9:55a m NECK PAIN. RX HERE December 16, 2024 11 :30am Additional Source Comments (unrecognized sect ion and content) No Status Records FoundNo Status Records FoundNo Status Records Found INFORMATION SOURCE (unrecogn ized section and content) DATE CREATED AUTHOR 03/13/2019 [facility] ([place]) DATE CREATED AUTHOR AUTHOR'S ORGANIZ ATION 08/18/2024 [facility] [place] DATE CREATED AUTHOR AUTHOR'S ORGANIZ ATION 03/16/2025 [facility] Goals (unrecognized section and content) Goals may be documented in a n alternate sectionGoals may be documented in an alternate sectionGoals may be documented in an alternate sectionGoals may be documented in an alternate sectionGoals may be documented in an alternate sectionGoals may be documented in an alternate sectionGoals may be documented in an alternate section Care Teams (unrecognized sec tion and content) Team Status: Active Member Role Status Dates Dr. Erickson Kimble , DO Family Provider Active Dr. Erickson Kimble , DO Primary Care Provider Active Team Status: Inactive Member Role Status Dates Dr. Erickson Kimble , DO Primary Care Provider, Referr ing Provider Active All LÓPEZ, PA Attending Provider Active Team Status: Inactive Member Role Status Dates Dr. Erickson Kimble , DO Primary Care Pr ovider, Attending Provider, Referring Provider Active Team Status: Inactive Member Role Status Dates Dr. Erickson Kimble , DO Primary Care Provider, Referr ing Provider Active Wilfred LÓPEZ, PA Attending Provider Active Team Status: Inactive Member Role Status Dates Dr. Erickson Kimble , DO Primary Care Provider, Attend ing Provider Active Team Status: Inactive Member Role Status Dates Dr. Erickson Kimble , DO Primary Care Provider Active Dr. Reilly Rai MD Attending Provider, Referring Pr ovider Active Team Status: Inactive Member Role Status Dates Dr. Erickson Kimble , DO Primary Care Provider, Referr ing Provider Active KILLIAN Davila Attending Provider Active Team Status: Active Member Role/Relationship Status Dates Dr. Erickson Kimble DO Primary Care Provider Active Team Status: Inactive Member Role/Relationship Status Dates Dr. Erickson Kimble DO Primary Care Provider Active Start: September 10, 2024 End: September 10, 2024 Dr. Erickson Kimble DO Attending Provider Active Start: September 10, 2024 End: September 10, 2024 Dr. Erickson Kimble DO Referring Provider Active Start: September 10, 2024 End: September 10, 2024 Team Status: Inactive Member Role/Relationship Status Dates Dr. Erickson Kimble DO Primary Care Provider Active Start: September 10, 2024 End: September 10, 2024 Dr. Philip Elise MD Attending Provider Active S tart: September 10, 2024 End: September 10, 2024 Team Status: Active Member Role/Relationship Status Dates Dr. Erickson Kimble DO Primary Care Provider Active Start: November 04, 2024 Dr. Erickson Kimble DO Attending Provider Active Start: November 04, 2024 Dr. Erickson Kimble DO Referring Provider Active Start: November 04, 2024 Team Status: Inactive Member Role/Relationship Status Dates Dr. Erickson Kimble DO Primary Care Provider Active Start: November 05, 2024 End: November 05, 2024 Dr. Erickson Kimble DO Attending Provider Active Start: November 05, 2024 End: November 05, 2024 Dr. Erickson Kimble DO Referring Provider Active Start: November 05, 2024 End: November 05, 2024 Team Status: Inactive Member Role/Relationship Status Dates Dr. Erickson Kimble DO Primary Care Provider Active Start: November 05, 2024 End: November 05, 2024 Dr. Erickson Kimble DO Attending Provider Active Start: November 05, 2024 End: November 05, 2024 Dr. Erickson Kimble DO Referring Provider Active Start: November 05, 2024 End: November 05, 2024 Team Status: Inactive Member Role/Relationship Status Dates Dr. Erickson Kimble DO Primary Care Provider Active Start: December 16, 2024 End: December 16, 2024 Dr. Erickson Kimble DO Attending Provider Active Start: December 16, 2024 End: December 16, 2024 Dr. Erickson Kimble DO Referring Provider Active Start: December 16, 2024 End: December 16, 2024 FOR RECORDS PERTAINING TO PATIENTS WHO ARE OR HAVE BEEN ENROLLED IN A CHEMICAL DEPENDENCY/SUBSTANCEABUSE PROGRAM, SOME INFORMATION MAY BE OMITTED. This clinical summary was aggregated from multiple sources. Caution should be exercised in using it in the provision of clinical care. This summary normalizes information from multiple sources, and as a consequence, information in this document may materially change the coding, format and clinical context of patient data. In addition, data may be omitted in some cases. CLINICAL DECISIONS SHOULD BE BASED ON THE PRIMARY CLINICAL RECORDS. [facility], [facility]. provides no warranty or guarantee of the accuracy or completeness of information in this document.
== END | disposition home or self-care (01) ==
LOC: US 12:38
PROVIDERS: PCP Family Medicine; Referring Provider Family Medicine; Visit Provider Family Medicine
DX: E04.1 Nontoxic single thyroid nodule (principal)
CPT/HCPCS: 76536